=== PATIENT | female | born 1945 | race Caucasian/White ===

== ENCOUNTER 2017-12-01 08:57 | Outpatient (CLI) | payer MEDICARE, OTHER ==
[~2017-12-01 08:57] MED LIST: ATOR40TA PO; DILT120C51 PO; DOCU100C41 PO; FLUO20TA28 PO; FURO20TA4 PO; GABA-534 PO; HYDR-565 PO; LEVO75TA7 PO; MULT-1085 PO; OMEP20CA10 PO; RIVA20TA PO; SOTA80TA26 PO; TRAZ-143 PO; UMEC62.5 INH; ZET10T PO
[2017-12-01 09:51] LABS: BASOPHILS % (AUTO) 0.4 % (0-1); EOSINOPHILS # (AUTO) 0.2 X10'3 (0-0.9); HEMATOCRIT 37.1 % (35.0-45.0); HEMOGLOBIN 12.1 g/dl (12.0-16.0); LYMPHOCYTES # (AUTO) 1.3 X10'3 (1.1-4.8); LYMPHOCYTES % (AUTO) 25.3 % (21-51); MEAN CORPUSCULAR HEMOGLOBIN 28.7 PG (27.0-31.0); MEAN CORPUSCULAR HGB CONC 32.6 % (33.0-36.5); MEAN PLATELET VOLUME 8.4 FL (7.4-10.4); MONOCYTES # (AUTO) 0.4 X10'3 (0-0.9); MONOCYTES % (AUTO) 8.2 % (2-12); NEUTROPHILS # (AUTO) 3.3 X10'3 (1.8-7.7); NEUTROPHILS % (AUTO) 63.1 % (42-75); PLATELET COUNT 186 X10'3 (140-440); RED BLOOD COUNT 4.22 X10'6 (4.20-5.60); RED CELL DISTRIBUTION WIDTH 14.4 % (11.5-14.5); WHITE BLOOD COUNT 5.2 X10'3 (4.5-11.0)
[2017-12-01 09:54] LABS: CLARITY,URINE SLIGHTLY CLOUDY (Clear); COLOR,URINE YELLOW (Yellow); GLUCOSE, URINE NEGATIVE (Neg); KETONES,URINE NEGATIVE (Neg); LEUKOCYTE ESTERASE ,URINE NEGATIVE (Neg); NITRITES, URINE NEGATIVE (Neg); OCCULT BLOOD,URINE TRACE-INTACT (Neg); PROTEIN,URINE NEGATIVE (Neg); UROBILINOGEN,URINE 0.2 E.U/dL (0.2-1.0)
[2017-12-01 09:59] LABS: UA COLLECTION TYPE CLN CATCH MIDSTREAM
[2017-12-01 10:01] LABS: INR 1.2 INR; PROTHROMBIN TIME 12.8 SECONDS (9.0-12.0)
[2017-12-01 10:15] LABS: ALANINE AMINOTRANSFERASE 27 U/L (12-78); ALBUMIN 3.2 G/DL (3.4-5.0); ALKALINE PHOSPHATASE 65 IU/L (46-116); ANION GAP 10 (8-16); ASPARTATE AMINO TRANSFERASE 20 U/L (10-37); BILIRUBIN,TOTAL 0.4 MG/DL (0.1-1.0); BLOOD UREA NITROGEN 10 MG/DL (7-18); BUN/CREATININE RATIO 11.5 (6.6-38.0); CALCIUM 8.6 MG/DL (8.5-10.1); CHLORIDE 107 MMOL/L (99-107); CREATININE 0.87 MG/DL (0.40-0.90); GLUCOSE 94 MG/DL (70-104); SODIUM 146 MMOL/L (135-145); TOTAL CARBON DIOXIDE 29.1 MMOL/L (24-32); TOTAL PROTEIN 6.5 G/DL (6.4-8.2); eGFR 64 ML/MIN
[2017-12-01 10:16] LABS: BACTERIA,URINE NONE SEEN /HPF (Neg); MUCUS STRANDS NONE SEEN /LPF (Neg); SQUAMOUS EPITHELIAL CELL,UR FEW /LPF (FEW); WBC,URINE 0-4 /HPF (0-4)
== END 2017-12-01 23:59 | disposition home or self-care (01) ==
LOC: LAB 08:57
PROVIDERS: ATTEND Specialist
DX: Z01.818 Encounter for other preprocedural examination (principal); Z51.81 Encounter for therapeutic drug level monitoring; N39.0 Urinary tract infection, site not specified; I10 Essential (primary) hypertension; E11.9 Type 2 diabetes mellitus without complications; J44.9 Chronic obstructive pulmonary disease, unspecified; Z87.891 Personal history of nicotine dependence
CPT/HCPCS: 36415; 80053; 81001; 85025; 85610; 87070

== ENCOUNTER 2017-12-15 12:23 | Inpatient (IN) | payer MEDICARE, OTHER ==
[2017-12-15] VITALS (17 sets, daily range): BP systolic 95–187; BP diastolic 44–75
[~2017-12-15] VITALS: Ht 165.1 cm; Wt 99.2 kg
[~2017-12-15 12:23] MED LIST changes: +ASCO500C15 PO; +CALC-1197 PO; +DOCUMENT DATE & TIME OF BETA-BLOCKER PO ONE; -FURO20TA4 PO; +acetaminophen 325mg tablet PO ONE; +albuterol 2.5 MG/3 ML nebule NEB ONE; +ceFAZolin 2gm in dextrose, iso 100 ML IV ONE; +cefazolin/dext.iso 2gm/50ml 50 ML IV ONE; +famotidine 20mg tablet PO ONE; +gabapentin 300mg capsule PO ONE; +oxyCODONE SR 10mg (sust. release) tab PO ONE; +ringers solution, lacted 1,000 ML IV SCH
[2017-12-15] MEDS ORDERED: ROPIVAcaine 0.5% (5mg/ml) 30ml vial ONE ×2 (12:46→15:07)
[2017-12-15 12:51] LABS: PARTIAL THROMBOPLASTIN TIME 30 SECONDS (22-32); PROTHROMBIN TIME 10.4 SECONDS (9.0-12.0)
[2017-12-15] MEDS ORDERED: bacitracin inj 150,000 UNIT in sodium chloride irrig. sol 3,000 ML IR ONE (13:00)
[2017-12-15] MEDS ORDERED: ENOX40SY7 SQ (13:06)
[2017-12-15] MEDS ORDERED: MORPHINE SULFATE/PF 0.5 MG/ML 10ML AMPUL ONE (13:20)
[2017-12-15] MEDS ORDERED: midazolam 2 mg/2 ml injection ONE (13:23)
[2017-12-15] MEDS ORDERED: propofol inj 20 ML IV ONE ×5 (13:25→14:55)
[2017-12-15] MEDS ORDERED: BUPIVAcaine/dex-water/PF 7.5 mg/ml 2ml ampul ONE (13:26)
[2017-12-15] MEDS ORDERED: ondansetron/PF 4mg/2ml inj ONE (14:15)
[2017-12-15] MEDS ORDERED: dexamethasone sod phosphate 4mg/ml inj. ONE (14:15)
[2017-12-15] MEDS ORDERED: 0.9 % SODIUM CHLORIDE 10 ML VIAL ONE (15:07)
[2017-12-15] MEDS ORDERED: ceFAZolin 1000mg inj ONE (15:17)
[2017-12-15] MEDS ORDERED: ondansetron/PF 4mg/2ml inj IV PRN ×2 (15:45→16:25)
[2017-12-15] MEDS ORDERED: morphine 4 MG/ML inj SYRINge IV PRN ×2 (15:45→16:25)
[2017-12-15] MEDS ORDERED: acetaminophen 325mg tablet PO PRN (15:45)
[2017-12-15] MEDS ORDERED: diphenhydrAMINE 25mg capsule PO PRN ×2 (15:45)
[2017-12-15] MEDS ORDERED: oxyCODONE/APAP 10/325mg tablet PO PRN (15:45)
[2017-12-15] MEDS ORDERED: magnesium hydroxide 30ml (MOM) UD suspension PO PRN (15:45)
[2017-12-15] MEDS ORDERED: bisacodyl 10mg suppository rectal RC PRN (15:45)
[2017-12-15] MEDS ORDERED: ringers solution, lacted 1,000 ML IV SCH (16:23)
[2017-12-15] MEDS ORDERED: fentaNYL/PF 50MCG/1 ML 2ML syringe IV PRN (16:25)
[2017-12-15] MEDS ORDERED: proCHLORperazine 10 MG/2 ml inj IV PRN (16:25)
[2017-12-15] MEDS: ceFAZolin 1GM/D5W- ADD-VANTAGE 50 ML IV SCH (18:30)
[2017-12-15] MEDS: potassium cl 20mEq in 1/2 NS 1,000 ML IV SCH (18:31)
[2017-12-15] MEDS: sotalol 80mg tablet PO SCH (20:00)
[2017-12-15] MEDS ORDERED: vancomycin/NS 1 GM ADD-VANTAGE 250 ML IV SCH (20:00)
[2017-12-15] MEDS: atorvastatin 20mg tablet PO SCH (21:08)
[2017-12-15] MEDS: gabapentin 400mg capsule PO SCH (21:08)
[2017-12-15] MEDS: FLUoxetine 20mg capsule PO SCH (21:08)
[2017-12-15] MEDS: docusate sod 100mg capsule PO SCH (21:08)
[2017-12-15] MEDS: ascorbic acid 500mg tablet PO SCH (21:08)
[2017-12-15] MEDS: sennosides 8.6mg tablet PO SCH (21:10)
[2017-12-16] MEDS: oxyCODONE/APAP 10/325mg tablet PO PRN ×5 (00:43→19:58)
[2017-12-16] MEDS: ceFAZolin 1GM/D5W- ADD-VANTAGE 50 ML IV SCH (00:45)
[2017-12-16 02:00] VITALS: BP 116/49
[2017-12-16 04:24] LABS: INR 1.3 INR; PROTHROMBIN TIME 13.3 SECONDS (9.0-12.0)
[2017-12-16 04:30] LABS: BASOPHILS % (AUTO) 0 % (0-1); EOSINOPHILS # (AUTO) 0.2 X10'3 (0-0.9); EOSINOPHILS % (AUTO) 1.8 % (0-6); HEMATOCRIT 32.8 % (35.0-45.0); HEMOGLOBIN 10.9 g/dl (12.0-16.0); LYMPHOCYTES # (AUTO) 1.2 X10'3 (1.1-4.8); LYMPHOCYTES % (AUTO) 11.6 % (21-51); MEAN CORPUSCULAR HEMOGLOBIN 29.1 PG (27.0-31.0); MEAN CORPUSCULAR HGB CONC 33.4 % (33.0-36.5); MEAN CORPUSCULAR VOLUME 87.1 FL (78-98); MEAN PLATELET VOLUME 8.5 FL (7.4-10.4); MONOCYTES # (AUTO) 0.5 X10'3 (0-0.9); MONOCYTES % (AUTO) 4.9 % (2-12); NEUTROPHILS # (AUTO) 8.2 X10'3 (1.8-7.7); NEUTROPHILS % (AUTO) 81.7 % (42-75); PLATELET COUNT 179 X10'3 (140-440); RED BLOOD COUNT 3.77 X10'6 (4.20-5.60); RED CELL DISTRIBUTION WIDTH 13.9 % (11.5-14.5)
[2017-12-16 05:10] LABS: ANION GAP 8 (8-16); CHLORIDE 105 MMOL/L (99-107); POTASSIUM 4.3 MMOL/L (3.5-5.1); SODIUM 141 MMOL/L (135-145); TOTAL CARBON DIOXIDE 28.2 MMOL/L (24-32)
[2017-12-16 05:30] VITALS: BP 116/51
[2017-12-16] MEDS: potassium cl 20mEq in 1/2 NS 1,000 ML IV SCH ×4 (05:31→23:44)
[2017-12-16] MEDS: pantoprazole 40mg Tablet.DR PO SCH (07:30)
[2017-12-16] MEDS: multivitamins, therapeutics tablet PO SCH (08:00)
[2017-12-16] MEDS: ezetimibe 10mg tablet PO SCH (08:00)
[2017-12-16] MEDS: gabapentin 400mg capsule PO SCH ×2 (08:00→19:56)
[2017-12-16] MEDS: sotalol 80mg tablet PO SCH ×2 (08:00→19:56)
[2017-12-16] MEDS: docusate sod 100mg capsule PO SCH ×2 (08:00→19:57)
[2017-12-16] MEDS: FLUoxetine 20mg capsule PO SCH ×2 (08:00→19:57)
[2017-12-16] MEDS: levoTHYROXINE 75mcg tablet PO SCH (08:00)
[2017-12-16] MEDS: ascorbic acid 500mg tablet PO SCH ×2 (08:00→19:57)
[2017-12-16] MEDS: diltiazem CD 180mg cap (once-daily) PO SCH (08:00)
[2017-12-16 10:00] VITALS: BP 130/55
[2017-12-16] MEDS ORDERED: warfarin 7.5mg tablet PO ONE (10:00)
[2017-12-16 14:00] VITALS: BP 112/36
[2017-12-16 18:00] VITALS: BP 113/58
[2017-12-16] MEDS: Protein Shake (high protein) 240ml (8oz) cup PO SCH (18:00)
[2017-12-16] MEDS: atorvastatin 20mg tablet PO SCH (20:01)
[2017-12-16] MEDS: sennosides 8.6mg tablet PO SCH (20:01)
[2017-12-16 22:00] VITALS: BP 142/50
[2017-12-17] MEDS: oxyCODONE/APAP 10/325mg tablet PO PRN ×5 (01:25→20:55)
[2017-12-17 05:30] VITALS: BP 166/51
[2017-12-17 06:09] LABS: BASOPHILS % (AUTO) 0.2 % (0-1); EOSINOPHILS # (AUTO) 0.1 X10'3 (0-0.9); EOSINOPHILS % (AUTO) 1.6 % (0-6); HEMATOCRIT 32.1 % (35.0-45.0); HEMOGLOBIN 10.6 g/dl (12.0-16.0); LYMPHOCYTES # (AUTO) 1.7 X10'3 (1.1-4.8); LYMPHOCYTES % (AUTO) 19.3 % (21-51); MEAN CORPUSCULAR HEMOGLOBIN 28.9 PG (27.0-31.0); MEAN CORPUSCULAR HGB CONC 33.2 % (33.0-36.5); MEAN CORPUSCULAR VOLUME 87.2 FL (78-98); MEAN PLATELET VOLUME 8.5 FL (7.4-10.4); MONOCYTES # (AUTO) 0.9 X10'3 (0-0.9); MONOCYTES % (AUTO) 10.1 % (2-12); NEUTROPHILS # (AUTO) 5.9 X10'3 (1.8-7.7); NEUTROPHILS % (AUTO) 68.8 % (42-75); PLATELET COUNT 172 X10'3 (140-440); RED BLOOD COUNT 3.68 X10'6 (4.20-5.60); RED CELL DISTRIBUTION WIDTH 14.3 % (11.5-14.5); WHITE BLOOD COUNT 8.6 X10'3 (4.5-11.0)
[2017-12-17 06:10] LABS: INR 3.2 INR; PROTHROMBIN TIME 31.8 SECONDS (9.0-12.0)
[2017-12-17] MEDS: potassium cl 20mEq in 1/2 NS 1,000 ML IV SCH (07:44)
[2017-12-17 08:18] VITALS: BP 157/52
[2017-12-17] MEDS: pantoprazole 40mg Tablet.DR PO SCH (08:19)
[2017-12-17] MEDS: levoTHYROXINE 75mcg tablet PO SCH (08:20)
[2017-12-17] MEDS: diltiazem CD 180mg cap (once-daily) PO SCH (08:20)
[2017-12-17] MEDS: sotalol 80mg tablet PO SCH ×2 (08:20→20:45)
[2017-12-17] MEDS: gabapentin 400mg capsule PO SCH ×2 (08:20→20:46)
[2017-12-17] MEDS: FLUoxetine 20mg capsule PO SCH ×2 (08:20→20:46)
[2017-12-17] MEDS: docusate sod 100mg capsule PO SCH ×2 (08:20→20:00)
[2017-12-17] MEDS: ezetimibe 10mg tablet PO SCH (08:21)
[2017-12-17] MEDS: ascorbic acid 500mg tablet PO SCH ×2 (08:21→20:46)
[2017-12-17] MEDS: multivitamins, therapeutics tablet PO SCH (08:21)
[2017-12-17] MEDS: Protein Shake (high protein) 240ml (8oz) cup PO SCH ×3 (08:26→18:00)
[2017-12-17 11:12] VITALS: BP 148/75
[2017-12-17] MEDS ORDERED: acetaminophen 325mg tablet PO PRN (15:45)
[2017-12-17 18:00] VITALS: BP 162/55
[2017-12-17] MEDS: sennosides 8.6mg tablet PO SCH (20:46)
[2017-12-17] MEDS: atorvastatin 20mg tablet PO SCH (20:46)
[2017-12-17 22:00] VITALS: BP 168/67
[2017-12-18] MEDS: oxyCODONE/APAP 10/325mg tablet PO PRN ×2 (01:43→08:37)
[2017-12-18 03:45] VITALS: BP 137/51
[2017-12-18 05:48] LABS: BASOPHILS % (AUTO) 0.5 % (0-1); EOSINOPHILS # (AUTO) 0.2 X10'3 (0-0.9); EOSINOPHILS % (AUTO) 2.1 % (0-6); HEMATOCRIT 30.8 % (35.0-45.0); HEMOGLOBIN 10.4 g/dl (12.0-16.0); LYMPHOCYTES # (AUTO) 1.9 X10'3 (1.1-4.8); LYMPHOCYTES % (AUTO) 24.6 % (21-51); MEAN CORPUSCULAR HEMOGLOBIN 29.4 PG (27.0-31.0); MEAN CORPUSCULAR HGB CONC 33.6 % (33.0-36.5); MEAN CORPUSCULAR VOLUME 87.5 FL (78-98); MEAN PLATELET VOLUME 8.7 FL (7.4-10.4); MONOCYTES # (AUTO) 0.7 X10'3 (0-0.9); MONOCYTES % (AUTO) 9.5 % (2-12); NEUTROPHILS % (AUTO) 63.3 % (42-75); PLATELET COUNT 168 X10'3 (140-440); RED BLOOD COUNT 3.52 X10'6 (4.20-5.60); RED CELL DISTRIBUTION WIDTH 14.3 % (11.5-14.5); WHITE BLOOD COUNT 7.8 X10'3 (4.5-11.0)
[2017-12-18 05:53] LABS: PROTHROMBIN TIME 39.9 SECONDS (9.0-12.0)
[2017-12-18 06:00] VITALS: BP 156/60
[2017-12-18 06:35] LABS: INR 4.1 INR
[2017-12-18] MEDS: pantoprazole 40mg Tablet.DR PO SCH (08:35)
[2017-12-18] MEDS: levoTHYROXINE 75mcg tablet PO SCH (08:35)
[2017-12-18] MEDS: sotalol 80mg tablet PO SCH (08:35)
[2017-12-18] MEDS: multivitamins, therapeutics tablet PO SCH (08:35)
[2017-12-18] MEDS: ascorbic acid 500mg tablet PO SCH (08:35)
[2017-12-18] MEDS: docusate sod 100mg capsule PO SCH (08:35)
[2017-12-18] MEDS: gabapentin 400mg capsule PO SCH (08:36)
[2017-12-18] MEDS: ezetimibe 10mg tablet PO SCH (08:36)
[2017-12-18] MEDS: diltiazem CD 180mg cap (once-daily) PO SCH (08:36)
[2017-12-18] MEDS: FLUoxetine 20mg capsule PO SCH (08:36)
[2017-12-18] MEDS: Protein Shake (high protein) 240ml (8oz) cup PO SCH (08:37)
[2017-12-18 09:30] LABS: INR 3.8 INR; PROTHROMBIN TIME 37.5 SECONDS (9.0-12.0)
[2017-12-18 10:00] VITALS: BP 152/61
== END 2017-12-18 11:49 | disposition home health service (06) | DRG 470 ==
LOC: PAS IN 12:23 → EDSTATUS 13:00 → ORTHO 4S 16:59
PROVIDERS: ADMIT Specialist; ATTEND Specialist
PROC: 0SRD0J9 Replacement of Left Knee Joint with Synthetic Substitute, Cemented, Open Approach (ICD-10-PCS; principal; 2017-12-15 13:26)
DX: M17.12 Unilateral primary osteoarthritis, left knee (principal); G62.9 Polyneuropathy, unspecified; D68.9 Coagulation defect, unspecified; D62 Acute posthemorrhagic anemia; M41.9 Scoliosis, unspecified; I48.91 Unspecified atrial fibrillation; E03.9 Hypothyroidism, unspecified; E66.9 Obesity, unspecified; J44.9 Chronic obstructive pulmonary disease, unspecified; E78.5 Hyperlipidemia, unspecified; I10 Essential (primary) hypertension; I25.10 Atherosclerotic heart disease of native coronary artery without angina pectoris; F32.9 Major depressive disorder, single episode, unspecified; F41.9 Anxiety disorder, unspecified; Z96.651 Presence of right artificial knee joint; Z95.5 Presence of coronary angioplasty implant and graft; Z79.891 Long term (current) use of opiate analgesic; Z87.891 Personal history of nicotine dependence; Z68.36 Body mass index [BMI] 36.0-36.9, adult
CPT/HCPCS: 36415; 73560; 80051; 85025; 85610; 85730; 97110; 97116; 97162; 97530; A6449; A6455; A7000; C1713; C1758; C1776; J0690; J1100; J2250; J2270; J2274; J2405; J2704; J2795; J3370; J3490; J7030; J7120

== ENCOUNTER 2018-02-23 11:41 | Emergency (ER) | payer MEDICARE, OTHER ==
[~2018-02-23] VITALS: Ht 165.1 cm; Wt 90.0 kg
[~2018-02-23 11:41] MED LIST changes: -DOCUMENT DATE & TIME OF BETA-BLOCKER PO ONE; +ENOX40SY7 SQ; -acetaminophen 325mg tablet PO ONE; -albuterol 2.5 MG/3 ML nebule NEB ONE; -ceFAZolin 2gm in dextrose, iso 100 ML IV ONE; -cefazolin/dext.iso 2gm/50ml 50 ML IV ONE; -famotidine 20mg tablet PO ONE; -gabapentin 300mg capsule PO ONE; -oxyCODONE SR 10mg (sust. release) tab PO ONE; -ringers solution, lacted 1,000 ML IV SCH
[2018-02-23 12:17] LABS: BASOPHILS % (AUTO) 0.5 % (0-1); EOSINOPHILS # (AUTO) 0.2 X10'3 (0-0.9); EOSINOPHILS % (AUTO) 3.9 % (0-6); HEMATOCRIT 35.2 % (35.0-45.0); HEMOGLOBIN 11.6 g/dl (12.0-16.0); LYMPHOCYTES # (AUTO) 1.8 X10'3 (1.1-4.8); LYMPHOCYTES % (AUTO) 32.2 % (21-51); MEAN CORPUSCULAR HEMOGLOBIN 28.7 PG (27.0-31.0); MEAN CORPUSCULAR VOLUME 86.9 FL (78-98); MEAN PLATELET VOLUME 8.3 FL (7.4-10.4); MONOCYTES # (AUTO) 0.4 X10'3 (0-0.9); MONOCYTES % (AUTO) 7.7 % (2-12); NEUTROPHILS # (AUTO) 3.2 X10'3 (1.8-7.7); NEUTROPHILS % (AUTO) 55.7 % (42-75); PLATELET COUNT 185 X10'3 (140-440); RED BLOOD COUNT 4.05 X10'6 (4.20-5.60); RED CELL DISTRIBUTION WIDTH 14.7 % (11.5-14.5); WHITE BLOOD COUNT 5.7 X10'3 (4.5-11.0)
[2018-02-23 12:32] LABS: ALANINE AMINOTRANSFERASE 22 U/L (12-78); ALBUMIN 3.3 G/DL (3.4-5.0); ALKALINE PHOSPHATASE 87 IU/L (46-116); ANION GAP 9 (8-16); ASPARTATE AMINO TRANSFERASE 21 U/L (10-37); BILIRUBIN,TOTAL 0.2 MG/DL (0.1-1.0); BLOOD UREA NITROGEN 13 MG/DL (7-18); CALCIUM 8.5 MG/DL (8.5-10.1); CHLORIDE 104 MMOL/L (99-107); CREATININE 0.93 MG/DL (0.40-0.90); GLUCOSE 167 MG/DL (70-104); LIPASE 75 U/L (73-393); POTASSIUM 3.8 MMOL/L (3.5-5.1); SODIUM 143 MMOL/L (135-145); TOTAL CARBON DIOXIDE 30.3 MMOL/L (24-32); TOTAL PROTEIN 6.7 G/DL (6.4-8.2); eGFR 59 ML/MIN
[2018-02-23 12:45] LABS: CLARITY,URINE Clear (Clear); COLOR,URINE Yellow (Yellow); GLUCOSE, URINE Negative (Neg); KETONES,URINE Negative (Neg); LEUKOCYTE ESTERASE ,URINE Negative (Neg); NITRITES, URINE Negative (Neg); OCCULT BLOOD,URINE Negative (Neg); PH,URINE 6.5 (4.8-8.0); PROTEIN,URINE Negative (Neg); UROBILINOGEN,URINE 0.2 E.U/dL (0.2-1.0)
[2018-02-23 12:47] LABS: UA COLLECTION TYPE CLN CATCH MIDSTREAM
[2018-02-23] MEDS ORDERED: normal saline 1000ML IV soln IVB ONE (12:50)
[2018-02-23 13:17] LABS: INR 1.4 INR; PROTHROMBIN TIME 14.1 SECONDS (9.0-12.0)
[2018-02-23 15:32] VITALS: BP 166/76
== END 2018-02-23 15:34 | disposition home or self-care (01) ==
LOC: ER 11:41
DX: R10.32 Left lower quadrant pain (principal); I10 Essential (primary) hypertension; J44.9 Chronic obstructive pulmonary disease, unspecified; Z86.14 Personal history of Methicillin resistant Staphylococcus aureus infection; I48.91 Unspecified atrial fibrillation; Z95.0 Presence of cardiac pacemaker; Z95.1 Presence of aortocoronary bypass graft; Z90.49 Acquired absence of other specified parts of digestive tract; Z88.5 Allergy status to narcotic agent; Z79.899 Other long term (current) drug therapy
CPT/HCPCS: 36415; 74022; 80053; 81003; 83690; 85025; 85610; 93005; 99285

== ENCOUNTER 2019-05-25 06:53 | Inpatient (IN) | payer MEDICARE, OTHER ==
[2019-05-21 11:51] LABS: BASOPHILS # (AUTO) 0.1 X10'3 (0-0.2); BASOPHILS % (AUTO) 0.8 % (0-1); EOSINOPHILS # (AUTO) 0.2 X10'3 (0-0.9); EOSINOPHILS % (AUTO) 3.1 % (0-6); LYMPHOCYTES % (AUTO) 26.4 % (21-51); MEAN CORPUSCULAR HGB CONC 32.4 g/dL (33.0-36.5); MEAN CORPUSCULAR VOLUME 86.4 FL (78-98); MONOCYTES # (AUTO) 0.6 X10'3 (0-0.9); MONOCYTES % (AUTO) 8.6 % (2-12); NEUTROPHILS # (AUTO) 4.5 X10'3 (1.8-7.7); NEUTROPHILS % (AUTO) 61.1 % (42-75); PRE OP PLATELET COUNT 241 X10'3 (140-440); RED BLOOD COUNT 4.28 X10'6 (4.20-5.60); RED CELL DISTRIBUTION WIDTH 14.2 % (11.5-14.5)
[2019-05-21 12:08] LABS: PRE OP PROTIME 15.1 SECONDS (9.0-12.0)
[2019-05-21 12:09] LABS: PRE OP INR 1.5 INR
[2019-05-21 12:16] LABS: ALBUMIN 3.4 G/DL (3.4-5.0); ALKALINE PHOSPHATASE 73 IU/L (46-116); BLOOD UREA NITROGEN 14 MG/DL (7-18); BUN/CREATININE RATIO 15.6 (6.6-38.0); CALCIUM 8.6 MG/DL (8.5-10.1); CHLORIDE 108 MMOL/L (99-107); PRE OP ALT 21 U/L (30-65); PRE OP ANION GAP 7 (8-16); PRE OP AST 20 U/L (10-37); PRE OP BILIRUB, TOTAL 0.3 MG/DL (0.0-1.0); PRE OP GLUCOSE 76 MG/DL (70-104); PRE OP POTASSIUM 4.2 MMOL/L (3.4-5.1); PRE OP SODIUM 143 MMOL/L (135-145); TOTAL CARBON DIOXIDE 27.9 MMOL/L (24-32); TOTAL PROTEIN 6.9 G/DL (6.4-8.2); eGFR 61 ML/MIN
[2019-05-25] VITALS (17 sets, daily range): BP systolic 117–171; BP diastolic 47–78
[~2019-05-25] VITALS: Ht 165.1 cm; Wt 88.5 kg
[~2019-05-25 06:53] MED LIST changes: +DOCUMENT DATE & TIME OF BETA-BLOCKER PO ONE; -ENOX40SY7 SQ; +HYDR-4353 PO; -HYDR-565 PO; -OMEP20CA10 PO; +OMEP20CA11 PO; -TRAZ-143 PO; +TRAZ-251 PO; +cefazolin/dext.iso 2gm/100 ML IV ONE; +famotidine 20mg tablet PO ONE; +ringers solution, lacted 1,000 ML IV SCH
[2019-05-25] MEDS ORDERED: ketorolac trometh. 30mg/ml inj. ONE ×2 (07:09→11:11)
[2019-05-25] MEDS ORDERED: LIDOcaine 1% 30ml preserv. free vial ONE (07:09)
[2019-05-25] MEDS ORDERED: BUPIVAcaine/PF 2.5 mg/ml (0.25%) 30ml vial ONE (07:09)
[2019-05-25] MEDS ORDERED: ROPIVAcaine 0.5% (5mg/ml) 30ml vial ONE (07:09)
[2019-05-25] MEDS ORDERED: ipratropium/albuterol 3ml nebule NEB ONE (07:30)
[2019-05-25] MEDS ORDERED: ringers solution, lacted 1,000 ML IV SCH (07:53)
[2019-05-25] MEDS ORDERED: ondansetron/PF 4mg/2ml inj IV PRN ×2 (07:55→11:30)
[2019-05-25] MEDS ORDERED: proCHLORperazine 10 MG/2 ml inj IV PRN (07:55)
[2019-05-25] MEDS ORDERED: meperidine/PF 25mg/ml syringe IV PRN ×3 (07:55)
[2019-05-25] MEDS ORDERED: fentaNYL/PF 50MCG/1 ML 2ML syringe ONE ×2 (08:19→10:21)
[2019-05-25 08:20] LABS: PRE OP PROTIME 10.1 SECONDS (9.0-12.0)
[2019-05-25] MEDS ORDERED: midazolam 2 mg/2 ml injection ONE (08:20)
[2019-05-25] MEDS ORDERED: LIDOcaine 2% (20mg/ml) 5ml vial ONE (08:22)
[2019-05-25] MEDS ORDERED: rocuronium 10mg/ml inj IV ONE (08:22)
[2019-05-25] MEDS ORDERED: propofol inj 20 ML IV ONE (08:22)
[2019-05-25] MEDS ORDERED: ondansetron/PF 4mg/2ml inj ONE (08:40)
[2019-05-25] MEDS ORDERED: dexamethasone sod phosphate 4mg/ml inj. ONE (08:40)
[2019-05-25] MEDS ORDERED: naloxone 0.4 mg/ml inj IV PRN (11:30)
[2019-05-25] MEDS ORDERED: CADD PCA waste documentation MC PRN (11:30)
--- NOTE | 2019-05-25 11:30 | NUR ---
Received from OR via BED , accompanied by Anesthesiologist DR VELAZQUEZ and report given by Anesthesiolgist. PATIENT WAKING UP, C/O PAIN SEE EMAR, V/S WNL, NEUROVASCULAR CHECKS INTACT, 20G PIV RUE, SCD ON, 3 BANDAIDS TO LAP SIGHTS OF ABDOMEN AND STERISTRIPS CDI WITH ABD BINDER
[2019-05-25] MEDS: HYDROmorphone/NS 1 mg/ml CADD 50 ML IV SCH ×7 (11:59→23:00)
--- NOTE | 2019-05-25 12:15 | NUR ---
Patient in room [facility]I 356. I have received report from Johan hummel and had the opportunity to ask questions and assume patient care.
--- NOTE | 2019-05-25 12:30 | NUR ---
PATIENT ORIENTED BUT SLEEPY HAS TEACHER KINDERGARTEN AND STATES IT IS HELPING HER WITH PAIN CONTROL, V/S WNL, CSM INTACT, 3 BANDAIDS TO LAP SITES OF ABDOMEN WITH BINDER CDI. SCD ON, 20G PIV, TELE PLACED ON PATIENT AND PATIENT TAKEN TO 357B WITH ALL BELONGINGS AND HOOKED UP TO MONITORS IN ROOM AND REPORT GIVEN TO RN WHO HAS TAKEN OVER PATIENT CARE.
[2019-05-25] MEDS: ipratropium 0.5 MG/2.5ML nebule IH SCH ×2 (15:31→20:27)
[2019-05-25] MEDS: potassium CL 20mEq in D5-1/2NS 1,000 ML IV SCH ×2 (15:46→20:15)
[2019-05-25] MEDS: ceFAZolin 1GM/D5W- ADD-VANTAGE 50 ML IV SCH ×2 (15:49→23:22)
--- NOTE | 2019-05-25 18:30 | NUR ---
Problems reprioritized. Patient report given, questions answered & plan of care reviewed with Malini NIEVES.
[2019-05-25] MEDS ORDERED: non-formulary drug (Omeprazole 1 CAP) PO SCH (20:00)
[2019-05-25] MEDS ORDERED: FLUOXETINE HCL PO SCH (20:00)
[2019-05-25] MEDS: FLUoxetine 20mg capsule PO SCH (20:15)
[2019-05-25] MEDS: pantoprazole 40mg Tablet.DR PO SCH (20:15)
[2019-05-25] MEDS: gabapentin 400mg capsule PO SCH (20:15)
[2019-05-25] MEDS: sotalol 80mg tablet PO SCH (20:15)
[2019-05-25] MEDS: atorvastatin 20mg tablet PO SCH (20:16)
[2019-05-25] MEDS: traZODone 50mg tablet PO SCH (20:16)
[2019-05-25] MEDS ORDERED: non-formulary drug (Atorvastatin Calcium* (Lipitor*) 80 MG) PO SCH (21:00)
--- NOTE | 2019-05-25 23:05 | NUR ---
Patient in room JOI 356. I have received report from LIZBETH Dumont and had the opportunity to ask questions and assume patient care. Addendum: 05/25/19 at 2306 by Malini Shaikh RN Amended: Links added.
[2019-05-26] VITALS: BP 134/50
[2019-05-26] MEDS: HYDROmorphone/NS 1 mg/ml CADD 50 ML IV SCH ×8 (01:00→15:00)
[2019-05-26] MEDS: ipratropium 0.5 MG/2.5ML nebule IH SCH ×4 (02:57→20:06)
[2019-05-26] MEDS: potassium CL 20mEq in D5-1/2NS 1,000 ML IV SCH ×3 (03:27→16:03)
[2019-05-26 05:58] LABS: BASOPHILS % (AUTO) 0.3 % (0-1); EOSINOPHILS % (AUTO) 0.1 % (0-6); HEMATOCRIT 36.9 % (35.0-45.0); LYMPHOCYTES # (AUTO) 1.1 X10'3 (1.1-4.8); LYMPHOCYTES % (AUTO) 12.8 % (21-51); MEAN CORPUSCULAR HEMOGLOBIN 28.3 PG (27.0-31.0); MEAN CORPUSCULAR HGB CONC 32.5 g/dL (33.0-36.5); MEAN PLATELET VOLUME 8.6 FL (7.4-10.4); MONOCYTES # (AUTO) 0.6 X10'3 (0-0.9); MONOCYTES % (AUTO) 6.6 % (2-12); NEUTROPHILS # (AUTO) 7.2 X10'3 (1.8-7.7); NEUTROPHILS % (AUTO) 80.2 % (42-75); PLATELET COUNT 209 X10'3 (140-440); RED BLOOD COUNT 4.24 X10'6 (4.20-5.60); RED CELL DISTRIBUTION WIDTH 13.9 % (11.5-14.5)
[2019-05-26 06:05] LABS: ALBUMIN 2.8 G/DL (3.4-5.0); ANION GAP 7 (8-16); BLOOD UREA NITROGEN 9 MG/DL (7-18); BUN/CREATININE RATIO 10.3 (6.6-38.0); CALCIUM 8.6 MG/DL (8.5-10.1); CHLORIDE 108 MMOL/L (99-107); CREATININE 0.87 MG/DL (0.40-0.90); GLUCOSE 151 MG/DL (70-104); POTASSIUM 4.8 MMOL/L (3.5-5.1); SODIUM 144 MMOL/L (135-145); TOTAL CARBON DIOXIDE 29.5 MMOL/L (24-32); eGFR 64 ML/MIN
--- NOTE | 2019-05-26 06:23 | NUR ---
Problems reprioritized. Patient report given, questions answered & plan of care reviewed with LIZBETH Lindquist. Addendum: 05/26/19 at 0623 by Malini Shaikh RN Amended: Links added.
--- NOTE | 2019-05-26 06:28 | NUR ---
Patient in room JOI 356. I have received report from Malini NIEVES and had the opportunity to ask questions and assume patient care.
[2019-05-26 07:00] VITALS: BP 147/50
[2019-05-26] MEDS ORDERED: DILTIAZEM HCL 180 MG PO SCH (08:00)
[2019-05-26] MEDS ORDERED: levoTHYROXINE 75mcg tablet PO SCH (08:00)
[2019-05-26] MEDS ORDERED: enoxaparin 40mg/0.4ml syringe SQ SCH (08:00)
[2019-05-26] MEDS ORDERED: non-formulary drug (Umeclidinium Bromide (Incruse Ellipta) 1 PUFF) INH SCH (08:00)
[2019-05-26] MEDS: diltiazem CD 180mg cap (once-daily) PO SCH (08:25)
[2019-05-26] MEDS: FLUoxetine 20mg capsule PO SCH ×2 (08:25→20:06)
[2019-05-26] MEDS: pantoprazole 40mg Tablet.DR PO SCH ×2 (08:25→20:06)
[2019-05-26] MEDS: gabapentin 400mg capsule PO SCH ×3 (08:25→20:06)
[2019-05-26] MEDS: ezetimibe 10mg tablet PO SCH (08:26)
[2019-05-26] MEDS: sotalol 80mg tablet PO SCH ×2 (08:26→20:06)
[2019-05-26] MEDS: rivaroxaban 20mg tablet PO SCH (08:26)
[2019-05-26 11:00] VITALS: BP 142/62
[2019-05-26] MEDS: HYDROcodone/acetaminophen 10/325mg tab PO PRN (17:48)
--- NOTE | 2019-05-26 18:31 | NUR ---
Problems reprioritized. Patient report given, questions answered & plan of care reviewed with Dereck NIEVES.
[2019-05-26 19:00] VITALS: BP 152/78
[2019-05-26] MEDS: traZODone 50mg tablet PO SCH (20:05)
[2019-05-26] MEDS: atorvastatin 20mg tablet PO SCH (20:06)
[2019-05-26] MEDS: HYDROcodone/acetaminophen 5mg/325mg tablet PO PRN (22:10)
[2019-05-27] VITALS: BP 125/67
[2019-05-27] MEDS: ipratropium 0.5 MG/2.5ML nebule IH SCH ×4 (03:01→20:07)
[2019-05-27] MEDS: HYDROcodone/acetaminophen 10/325mg tab PO PRN ×4 (03:09→19:20)
[2019-05-27 06:17] LABS: BASOPHILS % (AUTO) 0.5 % (0-1); EOSINOPHILS # (AUTO) 0.1 X10'3 (0-0.9); EOSINOPHILS % (AUTO) 0.9 % (0-6); HEMATOCRIT 37.2 % (35.0-45.0); HEMOGLOBIN 12.1 g/dl (12.0-16.0); LYMPHOCYTES # (AUTO) 1.7 X10'3 (1.1-4.8); LYMPHOCYTES % (AUTO) 22.8 % (21-51); MEAN CORPUSCULAR HEMOGLOBIN 28.1 PG (27.0-31.0); MEAN CORPUSCULAR HGB CONC 32.5 g/dL (33.0-36.5); MEAN CORPUSCULAR VOLUME 86.5 FL (78-98); MEAN PLATELET VOLUME 8.5 FL (7.4-10.4); MONOCYTES # (AUTO) 0.6 X10'3 (0-0.9); MONOCYTES % (AUTO) 7.8 % (2-12); NEUTROPHILS # (AUTO) 5.2 X10'3 (1.8-7.7); PLATELET COUNT 205 X10'3 (140-440); RED CELL DISTRIBUTION WIDTH 14.2 % (11.5-14.5); WHITE BLOOD COUNT 7.6 X10'3 (4.5-11.0)
[2019-05-27 06:35] LABS: ALBUMIN 2.8 G/DL (3.4-5.0); ANION GAP 6 (8-16); BLOOD UREA NITROGEN 8 MG/DL (7-18); BUN/CREATININE RATIO 10.4 (6.6-38.0); CALCIUM 9.3 MG/DL (8.5-10.1); CHLORIDE 112 MMOL/L (99-107); CREATININE 0.77 MG/DL (0.40-0.90); GLUCOSE 90 MG/DL (70-104); POTASSIUM 4.1 MMOL/L (3.5-5.1); SODIUM 147 MMOL/L (135-145); TOTAL CARBON DIOXIDE 29.2 MMOL/L (24-32); eGFR 73 ML/MIN
--- NOTE | 2019-05-27 06:41 | NUR ---
Problems reprioritized. Patient report given, questions answered & plan of care reviewed with ramirez and suzanne.
--- NOTE | 2019-05-27 06:51 | NUR ---
Patient in room [facility]I 356. I have received report from Dereck NIEVES and had the opportunity to ask questions and assume patient care.
[2019-05-27 07:00] VITALS: BP 156/58
[2019-05-27] MEDS: diltiazem CD 180mg cap (once-daily) PO SCH (08:31)
[2019-05-27] MEDS: pantoprazole 40mg Tablet.DR PO SCH ×2 (08:31→19:21)
[2019-05-27] MEDS: FLUoxetine 20mg capsule PO SCH ×2 (08:31→19:20)
[2019-05-27] MEDS: ezetimibe 10mg tablet PO SCH (08:31)
[2019-05-27] MEDS: sotalol 80mg tablet PO SCH ×2 (08:32→19:21)
[2019-05-27] MEDS: rivaroxaban 20mg tablet PO SCH (08:32)
[2019-05-27] MEDS: gabapentin 400mg capsule PO SCH ×3 (08:33→21:59)
[2019-05-27] MEDS: levoTHYROXINE 75mcg tablet PO SCH (08:33)
[2019-05-27 11:00] VITALS: BP 144/67
[2019-05-27 18:00] VITALS: BP 153/73
--- NOTE | 2019-05-27 18:33 | NUR ---
patient was seen by Dr duff . Commenced on regular diet. patient able to pass gas . Tolerating reg diet. Up ambulating x1 . Fletcher given Q 4hrly. report given to prudence. Abdominal binder to be worn when ambulating.
--- NOTE | 2019-05-27 18:38 | NUR ---
Patient in room [facility]I 356. I have received report from Eduarda NIEVES and had the opportunity to ask questions and assume patient care.
[2019-05-27] MEDS: traZODone 50mg tablet PO SCH (21:59)
[2019-05-27] MEDS: atorvastatin 20mg tablet PO SCH (22:01)
[2019-05-28 00:38] VITALS: BP 129/50
[2019-05-28] MEDS: ipratropium 0.5 MG/2.5ML nebule IH SCH ×2 (02:27→07:26)
[2019-05-28] MEDS: HYDROcodone/acetaminophen 5mg/325mg tablet PO PRN (03:44)
[2019-05-28 06:09] LABS: BASOPHILS # (AUTO) 0.1 X10'3 (0-0.2); BASOPHILS % (AUTO) 0.9 % (0-1); EOSINOPHILS # (AUTO) 0.2 X10'3 (0-0.9); EOSINOPHILS % (AUTO) 3.6 % (0-6); HEMATOCRIT 38.3 % (35.0-45.0); HEMOGLOBIN 12.4 g/dl (12.0-16.0); LYMPHOCYTES # (AUTO) 1.8 X10'3 (1.1-4.8); LYMPHOCYTES % (AUTO) 30.6 % (21-51); MEAN CORPUSCULAR HEMOGLOBIN 28.2 PG (27.0-31.0); MEAN CORPUSCULAR HGB CONC 32.4 g/dL (33.0-36.5); MEAN PLATELET VOLUME 8.3 FL (7.4-10.4); MONOCYTES # (AUTO) 0.5 X10'3 (0-0.9); MONOCYTES % (AUTO) 8.6 % (2-12); NEUTROPHILS # (AUTO) 3.3 X10'3 (1.8-7.7); NEUTROPHILS % (AUTO) 56.3 % (42-75); PLATELET COUNT 180 X10'3 (140-440); RED CELL DISTRIBUTION WIDTH 14.1 % (11.5-14.5); WHITE BLOOD COUNT 5.8 X10'3 (4.5-11.0)
--- NOTE | 2019-05-28 06:18 | NUR ---
Problems reprioritized. Patient report given, questions answered & plan of care reviewed with Shyla NIEVES.
[2019-05-28 06:40] LABS: ALBUMIN 2.8 G/DL (3.4-5.0); ANION GAP 6 (8-16); BLOOD UREA NITROGEN 13 MG/DL (7-18); BUN/CREATININE RATIO 12.4 (6.6-38.0); CALCIUM 8.6 MG/DL (8.5-10.1); CHLORIDE 109 MMOL/L (99-107); CREATININE 1.05 MG/DL (0.40-0.90); GLUCOSE 76 MG/DL (70-104); POTASSIUM 4.1 MMOL/L (3.5-5.1); SODIUM 145 MMOL/L (135-145); TOTAL CARBON DIOXIDE 30.4 MMOL/L (24-32); eGFR 51 ML/MIN
[2019-05-28 08:00] VITALS: BP 174/72
[2019-05-28] MEDS: gabapentin 400mg capsule PO SCH ×2 (09:01→13:00)
[2019-05-28] MEDS: diltiazem CD 180mg cap (once-daily) PO SCH (09:01)
[2019-05-28] MEDS: sotalol 80mg tablet PO SCH (09:01)
[2019-05-28] MEDS: rivaroxaban 20mg tablet PO SCH (09:01)
[2019-05-28] MEDS: pantoprazole 40mg Tablet.DR PO SCH (09:01)
[2019-05-28] MEDS: ezetimibe 10mg tablet PO SCH (09:02)
[2019-05-28] MEDS: FLUoxetine 20mg capsule PO SCH (09:02)
[2019-05-28] MEDS: levoTHYROXINE 75mcg tablet PO SCH (09:02)
[2019-05-28] MEDS: HYDROcodone/acetaminophen 10/325mg tab PO PRN (10:43)
[2019-05-28 11:00] VITALS: BP 168/66
--- NOTE | 2019-05-28 12:23 | NUR ---
IV DC. CANULA INTACT
--- NOTE | 2019-05-28 14:30 | NUR ---
pt wheeled down safely to Saranas's car. Pt has all belongings and understands at discharge instructions.
== END 2019-05-28 14:53 | disposition home or self-care (01) | DRG 337 ==
LOC: PAS 06:53 → SUR 3N 11:30 → OBSVTOIN 11:30 → UNDOADMOB 12:59 → SUR 3N 12:59
PROVIDERS: ADMIT Surgery; ATTEND Surgery
PROC: 0DN84ZZ Release Small Intestine, Percutaneous Endoscopic Approach (ICD-10-PCS; 2019-05-25)
PROC: 3E0T3BZ Introduction of Anesthetic Agent into Peripheral Nerves and Plexi, Percutaneous Approach (ICD-10-PCS; 2019-05-25)
PROC: 8E0W4CZ Robotic Assisted Procedure of Trunk Region, Percutaneous Endoscopic Approach (ICD-10-PCS; 2019-05-25)
PROC: 0DNU4ZZ Release Omentum, Percutaneous Endoscopic Approach (ICD-10-PCS; 2019-05-25)
PROC: 0WUF4JZ Supplement Abdominal Wall with Synthetic Substitute, Percutaneous Endoscopic Approach (ICD-10-PCS; principal; 2019-05-25 08:13)
DX: K43.2 Incisional hernia without obstruction or gangrene (principal); J44.9 Chronic obstructive pulmonary disease, unspecified; I25.10 Atherosclerotic heart disease of native coronary artery without angina pectoris; K21.9 Gastro-esophageal reflux disease without esophagitis; F32.9 Major depressive disorder, single episode, unspecified; F41.9 Anxiety disorder, unspecified; E78.5 Hyperlipidemia, unspecified; K66.0 Peritoneal adhesions (postprocedural) (postinfection); I10 Essential (primary) hypertension; M19.90 Unspecified osteoarthritis, unspecified site; Z96.651 Presence of right artificial knee joint; E03.9 Hypothyroidism, unspecified; Z79.899 Other long term (current) drug therapy; Z79.890 Hormone replacement therapy; Z86.14 Personal history of Methicillin resistant Staphylococcus aureus infection; Z87.891 Personal history of nicotine dependence; Z90.710 Acquired absence of both cervix and uterus; Z95.0 Presence of cardiac pacemaker; Z95.5 Presence of coronary angioplasty implant and graft; Z90.49 Acquired absence of other specified parts of digestive tract
CPT/HCPCS: 36415; 80048; 80053; 82948; 85025; 85610; 85730; 93005; 94640; 94760; A4215; A4618; C1781; G0378; J0690; J1100; J1170; J1885; J2001; J2175; J2250; J2405; J2704; J2795; J3010; J3480; J3490; J7120

== ENCOUNTER 2019-08-15 07:59 | Emergency (ER) | payer MEDICARE, OTHER ==
[~2019-08-15] VITALS: Ht 165.1 cm; Wt 86.4 kg
[~2019-08-15 07:59] MED LIST changes: -DOCUMENT DATE & TIME OF BETA-BLOCKER PO ONE; -cefazolin/dext.iso 2gm/100 ML IV ONE; -famotidine 20mg tablet PO ONE; -ringers solution, lacted 1,000 ML IV SCH
[2019-08-15] MEDS ORDERED: ondansetron/PF 4mg/2ml inj IV ONE (08:55)
[2019-08-15] MEDS ORDERED: normal saline 1000ml 1,000 ML IV ONE (08:55)
[2019-08-15 09:50] LABS: BASOPHILS % (AUTO) 0.4 % (0-1); EOSINOPHILS % (AUTO) 0 % (0-6); HEMATOCRIT 38.3 % (35.0-45.0); HEMOGLOBIN 12.5 g/dl (12.0-16.0); LYMPHOCYTES # (AUTO) 0.6 X10'3 (1.1-4.8); LYMPHOCYTES % (AUTO) 6.5 % (21-51); MEAN CORPUSCULAR HEMOGLOBIN 27.6 PG (27.0-31.0); MEAN CORPUSCULAR HGB CONC 32.8 g/dL (33.0-36.5); MEAN CORPUSCULAR VOLUME 84.2 FL (78-98); MEAN PLATELET VOLUME 8.3 FL (7.4-10.4); MONOCYTES # (AUTO) 0.2 X10'3 (0-0.9); MONOCYTES % (AUTO) 2.4 % (2-12); NEUTROPHILS # (AUTO) 8.1 X10'3 (1.8-7.7); NEUTROPHILS % (AUTO) 90.7 % (42-75); PLATELET COUNT 230 X10'3 (140-440); RED BLOOD COUNT 4.54 X10'6 (4.20-5.60)
[2019-08-15 09:51] LABS: CLARITY,URINE CLEAR (Clear); COLOR,URINE YELLOW (Yellow); GLUCOSE, URINE NEGATIVE (Neg); KETONES,URINE 15 mg/dl (Neg); LEUKOCYTE ESTERASE ,URINE NEGATIVE (Neg); NITRITES, URINE NEGATIVE (Neg); OCCULT BLOOD,URINE SMALL (Neg); PH,URINE 7.5 (4.8-8.0); PROTEIN,URINE NEGATIVE (Neg); UROBILINOGEN,URINE 0.2 E.U/dL (0.2-1.0)
[2019-08-15 09:54] LABS: UA COLLECTION TYPE STRAIGHT CATH
[2019-08-15 09:56] LABS: BACTERIA,URINE NONE SEEN /HPF (Neg); MUCUS STRANDS FEW /LPF (Neg); SQUAMOUS EPITHELIAL CELL,UR FEW /LPF (FEW); WBC,URINE NONE SEEN /HPF (0-4)
[2019-08-15] MEDS ORDERED: proCHLORperazine 10 MG/2 ml inj IV ONE (10:00)
[2019-08-15] MEDS ORDERED: ketorolac tromethamine 15mg/ml inj. IV ONE (10:00)
[2019-08-15] MEDS ORDERED: famotidine/PF 10 mg/ml inj IV ONE (10:00)
[2019-08-15 10:04] LABS: ALANINE AMINOTRANSFERASE 20 U/L (12-78); ALBUMIN 3.3 G/DL (3.4-5.0); ALBUMIN/GLOBULIN RATIO 0.8 (1.1-1.5); ALKALINE PHOSPHATASE 77 IU/L (46-116); ANION GAP 10 (8-16); ASPARTATE AMINO TRANSFERASE 23 U/L (10-37); BILIRUBIN,TOTAL 0.5 MG/DL (0.1-1.0); BLOOD UREA NITROGEN 12 MG/DL (7-18); BUN/CREATININE RATIO 14.5 (6.6-38.0); CALCIUM 8.9 MG/DL (8.5-10.1); CHLORIDE 102 MMOL/L (99-107); CREATININE 0.83 MG/DL (0.40-0.90); GLUCOSE 141 MG/DL (70-104); POTASSIUM 3.1 MMOL/L (3.5-5.1); SODIUM 142 MMOL/L (135-145); TOTAL CARBON DIOXIDE 29.9 MMOL/L (24-32); TOTAL PROTEIN 7.2 G/DL (6.4-8.2); eGFR 67 ML/MIN
[2019-08-15] MEDS ORDERED: POTA20TA19 PO (10:10)
[2019-08-15] MEDS ORDERED: ONDA8TAB6 PO (10:10)
[2019-08-15 10:11] LABS: LIPASE < 50 U/L (73-393); MAGNESIUM 1.4 MG/DL (1.5-2.4)
[2019-08-15] MEDS ORDERED: furosemide 10 MG/1 ML 10ml inj IV ONE (10:20)
[2019-08-15] MEDS ORDERED: POTASSIUM BICARB 20meq eff tab 20 MEQ TABLET.EFF PO ONE (11:05)
[2019-08-15 12:17] VITALS: BP 155/63
--- NOTE | 2019-08-15 12:18 | NUR ---
Assisted to the bedside commode to void urine.
--- NOTE | 2019-08-15 12:44 | NUR ---
TC TO RELATIVES AT [facility]. FAMILY MEMBER STATES THAT SOMEONE WILL BE ON THE WAY FOR DC TRANSPORTATION.
== END 2019-08-15 13:37 | disposition home or self-care (01) ==
LOC: ER 07:59
DX: K52.9 Noninfective gastroenteritis and colitis, unspecified (principal); R11.2 Nausea with vomiting, unspecified; I48.91 Unspecified atrial fibrillation; I10 Essential (primary) hypertension; J44.9 Chronic obstructive pulmonary disease, unspecified; Z87.19 Personal history of other diseases of the digestive system; G47.30 Sleep apnea, unspecified; Z88.6 Allergy status to analgesic agent; Z79.899 Other long term (current) drug therapy; Z98.890 Other specified postprocedural states; Z86.14 Personal history of Methicillin resistant Staphylococcus aureus infection; Z90.49 Acquired absence of other specified parts of digestive tract; Z95.1 Presence of aortocoronary bypass graft
CPT/HCPCS: 36415; 71045; 80053; 81001; 83605; 83690; 83735; 83880; 84484; 85025; 93005; 96361; 96374; 96375; 99284; J0780; J1885; J1940; J2405; J3490; J7030

== ENCOUNTER 2019-09-07 17:34 | Emergency (ER) | payer MEDICARE, OTHER ==
[~2019-09-07] VITALS: Ht 165.1 cm; Wt 85.2 kg
[~2019-09-07 17:34] MED LIST changes: +OMEP-297 PO; -OMEP20CA11 PO; +ONDA8TAB6 PO; +POTA20TA19 PO
[2019-09-07 18:51] LABS: BASOPHILS % (AUTO) 0.5 % (0-1); EOSINOPHILS # (AUTO) 0.2 X10'3 (0-0.9); EOSINOPHILS % (AUTO) 2.4 % (0-6); HEMATOCRIT 35.2 % (35.0-45.0); HEMOGLOBIN 11.5 g/dl (12.0-16.0); LYMPHOCYTES # (AUTO) 2.2 X10'3 (1.1-4.8); LYMPHOCYTES % (AUTO) 30.7 % (21-51); MEAN CORPUSCULAR HEMOGLOBIN 27.6 PG (27.0-31.0); MEAN CORPUSCULAR HGB CONC 32.6 g/dL (33.0-36.5); MEAN CORPUSCULAR VOLUME 84.7 FL (78-98); MEAN PLATELET VOLUME 8.5 FL (7.4-10.4); MONOCYTES # (AUTO) 0.7 X10'3 (0-0.9); MONOCYTES % (AUTO) 9.3 % (2-12); NEUTROPHILS # (AUTO) 4.2 X10'3 (1.8-7.7); NEUTROPHILS % (AUTO) 57.1 % (42-75); PLATELET COUNT 215 X10'3 (140-440); RED BLOOD COUNT 4.15 X10'6 (4.20-5.60); RED CELL DISTRIBUTION WIDTH 14.6 % (11.5-14.5); WHITE BLOOD COUNT 7.3 X10'3 (4.5-11.0)
[2019-09-07 19:14] LABS: ALANINE AMINOTRANSFERASE 16 U/L (12-78); ALBUMIN 2.9 G/DL (3.4-5.0); ALBUMIN/GLOBULIN RATIO 0.7 (1.1-1.5); ALKALINE PHOSPHATASE 81 IU/L (46-116); ANION GAP 6 (8-16); ASPARTATE AMINO TRANSFERASE 20 U/L (10-37); BILIRUBIN,TOTAL 0.4 MG/DL (0.1-1.0); BLOOD UREA NITROGEN 10 MG/DL (7-18); BUN/CREATININE RATIO 9.8 (6.6-38.0); CALCIUM 8.6 MG/DL (8.5-10.1); CHLORIDE 103 MMOL/L (99-107); CREATININE 1.02 MG/DL (0.40-0.90); GLUCOSE 119 MG/DL (70-104); POTASSIUM 3.5 MMOL/L (3.5-5.1); SODIUM 142 MMOL/L (135-145); TOTAL CARBON DIOXIDE 33.3 MMOL/L (24-32); TOTAL PROTEIN 6.9 G/DL (6.4-8.2); eGFR 53 ML/MIN
[2019-09-07] MEDS ORDERED: benzonatate 100mg capsule PO ONE (20:05)
[2019-09-07] MEDS ORDERED: AZIT-63 PO (21:03)
[2019-09-07] MEDS ORDERED: BENZ-16 PO (21:03)
[2019-09-07] MEDS ORDERED: azithromycin 250mg tablet PO ONE (21:05)
--- NOTE | 2019-09-07 21:24 | NUR ---
pt's sat on room air 88-89%. pt states she uses oxygen at home at 2 lpm and that this is normal for her. notified, ok to discharge pt home to use her home oxygen
[2019-09-07 21:30] VITALS: BP 117/55
== END 2019-09-07 21:32 | disposition home or self-care (01) ==
LOC: ER 17:35
DX: J20.9 Acute bronchitis, unspecified (principal); I48.91 Unspecified atrial fibrillation; I25.10 Atherosclerotic heart disease of native coronary artery without angina pectoris; I10 Essential (primary) hypertension; J44.9 Chronic obstructive pulmonary disease, unspecified; M19.90 Unspecified osteoarthritis, unspecified site; Z86.14 Personal history of Methicillin resistant Staphylococcus aureus infection; Z95.5 Presence of coronary angioplasty implant and graft; Z90.49 Acquired absence of other specified parts of digestive tract; Z95.0 Presence of cardiac pacemaker; Z87.891 Personal history of nicotine dependence; Z88.5 Allergy status to narcotic agent; Z79.899 Other long term (current) drug therapy
CPT/HCPCS: 36415; 71046; 80053; 83605; 84484; 85025; 87040; 87077; 87185; 93005; 99284

== ENCOUNTER 2021-03-27 21:07 | Emergency (ER) | payer MEDICARE, OTHER ==
[~2021-03-27] VITALS: Ht 165.1 cm; Wt 81.0 kg
[~2021-03-27 21:07] MED LIST changes: -ASCO500C15 PO; +ASCO500C18 PO; -CALC-1197 PO; +CALC-1215 PO; -OMEP-297 PO; +OMEP20CA15 PO; -POTA20TA19 PO
[2021-03-27 21:50] LABS: ALANINE AMINOTRANSFERASE 21 U/L (12-78); ALBUMIN 3.2 G/DL (3.4-5.0); ALKALINE PHOSPHATASE 73 IU/L (46-116); ANION GAP 7 (8-16); ASPARTATE AMINO TRANSFERASE 24 U/L (10-37); BILIRUBIN,TOTAL 0.3 MG/DL (0.1-1.0); BLOOD UREA NITROGEN 14 MG/DL (7-18); BUN/CREATININE RATIO 15.2 (6.6-38.0); CALCIUM 8.2 MG/DL (8.5-10.1); CHLORIDE 106 MMOL/L (99-107); CREATININE 0.92 MG/DL (0.40-0.90); GLUCOSE 105 MG/DL (70-104); SODIUM 143 MMOL/L (135-145); TOTAL CARBON DIOXIDE 30.3 MMOL/L (24-32); TOTAL PROTEIN 6.4 G/DL (6.4-8.2); eGFR 59 ML/MIN
[2021-03-27 21:51] LABS: BASOPHILS % (AUTO) 0.7 % (0-1); EOSINOPHILS # (AUTO) 0.2 X10'3 (0-0.9); EOSINOPHILS % (AUTO) 3.6 % (0-6); HEMATOCRIT 32.2 % (35.0-45.0); HEMOGLOBIN 10.4 g/dl (12.0-16.0); LYMPHOCYTES % (AUTO) 38.3 % (21-51); MEAN CORPUSCULAR HEMOGLOBIN 27.2 PG (27.0-31.0); MEAN CORPUSCULAR HGB CONC 32.4 g/dL (33.0-36.5); MEAN PLATELET VOLUME 8.8 FL (7.4-10.4); MONOCYTES # (AUTO) 0.6 X10'3 (0-0.9); NEUTROPHILS # (AUTO) 2.4 X10'3 (1.8-7.7); NEUTROPHILS % (AUTO) 46.4 % (42-75); PLATELET COUNT 169 X10'3 (140-440); RED BLOOD COUNT 3.84 X10'6 (4.20-5.60); RED CELL DISTRIBUTION WIDTH 15.4 % (11.5-14.5); WHITE BLOOD COUNT 5.2 X10'3 (4.5-11.0)
[2021-03-27 21:58] LABS: TROPONIN I < 0.04 NG/ML (0.0-0.05)
[2021-03-27] MEDS ORDERED: diltiazem 5mg/ml 5ml inj. IV ONE (22:50)
[2021-03-27] MEDS ORDERED: normal saline 1000ml 1,000 ML IV ONE (22:50)
--- NOTE | 2021-03-27 23:40 | NUR ---
Slight drop in rate with vagal manuevers but no rhythm conversion
[2021-03-28] MEDS ORDERED: VORT10TA PO (00:16)
[2021-03-28] MEDS ORDERED: CELE100C98 PO (00:29)
[2021-03-28] MEDS ORDERED: AZEL6DRO5 EACHEYE (00:29)
[2021-03-28] MEDS ORDERED: FURO20TA4 PO (00:29)
[2021-03-28] MEDS ORDERED: MIRA25TA PO (00:30)
[2021-03-28] MEDS ORDERED: DILT-36 PO (00:32)
[2021-03-28 00:48] VITALS: BP 147/80
== END 2021-03-28 00:49 | disposition home or self-care (01) ==
LOC: ER 21:07
DX: I48.91 Unspecified atrial fibrillation (principal); I25.10 Atherosclerotic heart disease of native coronary artery without angina pectoris; I10 Essential (primary) hypertension; J44.9 Chronic obstructive pulmonary disease, unspecified; G47.39 Other sleep apnea; M19.90 Unspecified osteoarthritis, unspecified site; Z98.890 Other specified postprocedural states; Z90.49 Acquired absence of other specified parts of digestive tract; Z95.1 Presence of aortocoronary bypass graft; Z95.0 Presence of cardiac pacemaker; Z87.891 Personal history of nicotine dependence; Z88.6 Allergy status to analgesic agent; Z79.899 Other long term (current) drug therapy
CPT/HCPCS: 36415; 71045; 80053; 83880; 84484; 85025; 93005; 96361; 96374; 99285; J7030; J3490

== ENCOUNTER 2022-01-02 12:35 | Emergency (ER) | payer MEDICARE, OTHER ==
[~2022-01-02] VITALS: Ht 165.1 cm; Wt 74.0 kg
[~2022-01-02 12:35] MED LIST changes: -ASCO500C18 PO; +AZEL6DRO5 EACHEYE; -CALC-1215 PO; +CELE100C98 PO; +DILT-36 PO; -DILT120C51 PO; -DOCU100C41 PO; +FURO20TA4 PO; +MIRA25TA PO; -MULT-1085 PO; -ONDA8TAB6 PO; +VORT10TA PO
[2022-01-02 13:17] LABS: EOSINOPHILS # (AUTO) 0.1 X10'3 (0-0.9); EOSINOPHILS % (AUTO) 2.9 % (0-6); HEMATOCRIT 29.7 % (35.0-45.0); HEMOGLOBIN 9.2 g/dl (12.0-16.0); LYMPHOCYTES # (AUTO) 1.2 X10'3 (1.1-4.8); LYMPHOCYTES % (AUTO) 27.3 % (21-51); MEAN CORPUSCULAR HGB CONC 31.1 g/dL (33.0-36.5); MEAN CORPUSCULAR VOLUME 80.3 FL (78-98); MEAN PLATELET VOLUME 8.5 FL (7.4-10.4); MONOCYTES # (AUTO) 0.4 X10'3 (0-0.9); MONOCYTES % (AUTO) 10.1 % (2-12); NEUTROPHILS # (AUTO) 2.6 X10'3 (1.8-7.7); NEUTROPHILS % (AUTO) 58.7 % (42-75); PLATELET COUNT 220 X10'3 (140-440); RED CELL DISTRIBUTION WIDTH 15.8 % (11.5-14.5); WHITE BLOOD COUNT 4.4 X10'3 (4.5-11.0)
[2022-01-02 13:34] LABS: ALANINE AMINOTRANSFERASE 17 U/L (12-78); ALBUMIN 2.9 G/DL (3.4-5.0); ALKALINE PHOSPHATASE 54 IU/L (46-116); ANION GAP 3 (8-16); ASPARTATE AMINO TRANSFERASE 24 U/L (10-37); BILIRUBIN,TOTAL 0.2 MG/DL (0.1-1.0); BLOOD UREA NITROGEN 13 MG/DL (7-18); BUN/CREATININE RATIO 14.6 (6.6-38.0); CALCIUM 8.4 MG/DL (8.5-10.1); CHLORIDE 108 MMOL/L (99-107); CREATININE 0.89 MG/DL (0.40-0.90); GLUCOSE 129 MG/DL (70-104); SODIUM 146 MMOL/L (135-145); TOTAL CARBON DIOXIDE 35.5 MMOL/L (24-32); TOTAL PROTEIN 5.9 G/DL (6.4-8.2); eGFR 62 ML/MIN
[2022-01-02] MEDS ORDERED: SOTA80TA73 PO (14:20)
[2022-01-02] MEDS ORDERED: TRAZ-256 PO (14:20)
[2022-01-02] MEDS ORDERED: CETI10TA14 PO (14:20)
[2022-01-02] MEDS ORDERED: ATOR-2 PO (14:20)
[2022-01-02] MEDS ORDERED: RIVA20TA PO (14:20)
[2022-01-02] MEDS ORDERED: OMEP20CA16 PO (14:20)
[2022-01-02] MEDS ORDERED: GABA-534 PO (14:20)
[2022-01-02] MEDS ORDERED: FLUO20TA28 PO (14:20)
[2022-01-02] MEDS ORDERED: FLUO40CA PO (14:20)
[2022-01-02] MEDS ORDERED: NITR0.4T51 SL (14:24)
[2022-01-02 15:04] VITALS: BP 120/59
== END 2022-01-02 15:27 | disposition home or self-care (01) ==
LOC: ER 12:35
DX: R00.2 Palpitations (principal); I48.91 Unspecified atrial fibrillation; I25.10 Atherosclerotic heart disease of native coronary artery without angina pectoris; I10 Essential (primary) hypertension; J44.9 Chronic obstructive pulmonary disease, unspecified; M19.90 Unspecified osteoarthritis, unspecified site; Z86.14 Personal history of Methicillin resistant Staphylococcus aureus infection; Z90.89 Acquired absence of other organs; Z95.0 Presence of cardiac pacemaker; Z98.890 Other specified postprocedural states; Z88.5 Allergy status to narcotic agent; Z79.899 Other long term (current) drug therapy
CPT/HCPCS: 36415; 71045; 80053; 83880; 84484; 85025; 93005; 99285

== ENCOUNTER 2022-03-09 10:20 | Inpatient (IN) | payer MEDICARE, OTHER ==
[~2022-03-09] VITALS: Ht 170.2 cm; Wt 77.3 kg
[~2022-03-09 10:20] MED LIST changes: +ATOR-2 PO; -ATOR40TA PO; -AZEL6DRO5 EACHEYE; +CETI10TA14 PO; -FLUO20TA28 PO; +FLUO40CA PO; -HYDR-4353 PO; -LEVO75TA7 PO; +NITR0.4T51 SL; -OMEP20CA15 PO; +OMEP20CA16 PO; -SOTA80TA26 PO; +SOTA80TA73 PO; -TRAZ-251 PO; +TRAZ-256 PO; -VORT10TA PO; -ZET10T PO
[2022-03-09] MEDS ORDERED: morphine 4 MG/ML inj SYRINge ONE (10:28)
[2022-03-09] MEDS ORDERED: morphine 2 MG/ML inj. syringe IV ONE ×2 (10:30)
[2022-03-09] MEDS ORDERED: LIDOcaine 2% 10ml TOPICAL JELLY (Urojet) TP ONE (10:30)
[2022-03-09] MEDS ORDERED: naloxone 0.4 mg/ml inj IV ONE ×2 (10:30)
[2022-03-09 10:34] LABS: ABG BASE EXCESS 1.6 mmol/L (-2.0-2.0); ABG HCO3 30.8 mmol/L (22.0-26.0); ABG OXYGEN SATURATION 86.4 % (94-97); ABG PCO2 (T) 80.9 mmHg (32.0-45.0); ABG PO2 (T) 63.7 mmHg (75.0-100.0); ALLEN'S TEST POSITIVE; FCOHb 1.2 % (0.0-3.9); FLOW 2 L/min; FMetHb 0.3 % (0.0-1.5); FO2Hb 85.1 % (94-97); TOTAL HEMOGLOBIN 9.3 G/dl (12.0-16.0)
[2022-03-09] MEDS ORDERED: EZET10TA6 PO (10:37)
[2022-03-09] MEDS ORDERED: LOPE-190 PO (10:37)
[2022-03-09] MEDS ORDERED: PRED5DRO23 EACHEYE (10:37)
--- NOTE | 2022-03-09 10:37 | NUR ---
RT AT BEDSIDE. PT PLACED ON BIPAP. 70% FIO2, RATE SET AT 8, PT RESPIRATIONS 33. NPA REMOVED BY RT
[2022-03-09 10:54] LABS: RED BLOOD COUNT 3.71 X10'6 (4.20-5.60)
[2022-03-09 10:56] LABS: BASOPHILS # (AUTO) 0.1 X10'3 (0-0.2); EOSINOPHILS # (AUTO) 0.2 X10'3 (0-0.9); EOSINOPHILS % (AUTO) 3.9 % (0-6); HEMATOCRIT 29.6 % (35.0-45.0); HEMOGLOBIN 8.6 g/dl (12.0-16.0); LYMPHOCYTES # (AUTO) 0.7 X10'3 (1.1-4.8); LYMPHOCYTES % (AUTO) 11.2 % (21-51); MEAN CORPUSCULAR HEMOGLOBIN 23.3 PG (27.0-31.0); MEAN CORPUSCULAR HGB CONC 29.1 g/dL (33.0-36.5); MEAN CORPUSCULAR VOLUME 79.9 FL (78-98); MEAN PLATELET VOLUME 8.2 FL (7.4-10.4); MONOCYTES # (AUTO) 0.3 X10'3 (0-0.9); MONOCYTES % (AUTO) 4.8 % (2-12); NEUTROPHILS % (AUTO) 79.1 % (42-75); PLATELET COUNT 241 X10'3 (140-440); RED CELL DISTRIBUTION WIDTH 16.9 % (11.5-14.5); WHITE BLOOD COUNT 6.3 X10'3 (4.5-11.0)
[2022-03-09 11:07] LABS: ALANINE AMINOTRANSFERASE 15 U/L (12-78); ALBUMIN 3.2 G/DL (3.4-5.0); ALBUMIN/GLOBULIN RATIO 0.9 (1.1-1.5); ALKALINE PHOSPHATASE 69 IU/L (46-116); ANION GAP 6 (8-16); ASPARTATE AMINO TRANSFERASE 24 U/L (10-37); BILIRUBIN,TOTAL 0.4 MG/DL (0.1-1.0); BLOOD UREA NITROGEN 12 MG/DL (7-18); BUN/CREATININE RATIO 15.8 (6.6-38.0); CALCIUM 8.5 MG/DL (8.5-10.1); CHLORIDE 107 MMOL/L (99-107); CREATININE 0.76 MG/DL (0.40-0.90); GLUCOSE 203 MG/DL (70-104); POTASSIUM 4.2 MMOL/L (3.5-5.1); SODIUM 145 MMOL/L (135-145); TOTAL CARBON DIOXIDE 31.8 MMOL/L (24-32); TOTAL PROTEIN 6.8 G/DL (6.4-8.2); eGFR 74 ML/MIN
[2022-03-09 11:14] LABS: C-REACTIVE PROTEIN 0.78 MG/DL (0.0-0.5)
[2022-03-09 11:26] LABS: ABG HCO3 29.2 mmol/L (22.0-26.0); ABG OXYGEN SATURATION 97.5 % (94-97); ABG PCO2 (T) 68.2 mmHg (32.0-45.0); ABG PO2 (T) 143.2 mmHg (75.0-100.0); ALLEN'S TEST POSITIVE; FCOHb 0.6 % (0.0-3.9); FMetHb 0.3 % (0.0-1.5); FO2Hb 96.6 % (94-97); PATIENT TEMPERATURE 36.8; RESPIRATORY RATE 8 b/min; TIDAL VOLUME 444 mL
[2022-03-09] MEDS ORDERED: magnesium 2GM in 50ml NS 50 ML IV ONE (11:35)
[2022-03-09] MEDS ORDERED: methylPREDNISolone sod succ 125mg/2ml vial IV ONE (11:35)
[2022-03-09 11:49] LABS: URINE AMPHETAMINE SCREEN NEGATIVE (Neg); URINE BARBITUATE SCREEN NEGATIVE (Neg); URINE BENZODIAZEPINES SCREEN NEGATIVE (Neg); URINE CANNABINOID SCREEN NEGATIVE (Neg); URINE COCAINE SCREEN NEGATIVE (Neg); URINE METHADONE SCREEN NEGATIVE (Neg); URINE OPIATE SCREEN POSITIVE (Neg); URINE PHENCYCLIDINE SCREEN NEGATIVE (Neg)
[2022-03-09] MEDS ORDERED: magnesium 2GM in 50ml NS 50 ML IV PRN (12:55)
[2022-03-09] MEDS ORDERED: ondansetron/PF 4mg/2ml inj IV PRN (12:55)
[2022-03-09] MEDS ORDERED: POTASSIUM BICARB 20meq eff tab 20 MEQ TABLET.EFF PO PRN ×2 (12:55)
[2022-03-09] MEDS ORDERED: magnesium 4gm in 100ml NS 100 ML IV PRN (12:55)
[2022-03-09] MEDS ORDERED: potassium CL 10mEq/100ml bag 100 ML IV PRN (12:55)
[2022-03-09] MEDS ORDERED: magnesium Cl slow-release 64mg tablet PO PRN (12:55)
[2022-03-09 13:32] LABS: MAGNESIUM 2.2 MG/DL (1.5-2.4); POTASSIUM 4.5 MMOL/L (3.5-5.1)
[2022-03-09 14:10] LABS: ABG BASE EXCESS 6.5 mmol/L (-2.0-2.0); ABG HCO3 34.1 mmol/L (22.0-26.0); ABG OXYGEN SATURATION 92.6 % (94-97); ALLEN'S TEST POSITIVE; FCOHb 1.1 % (0.0-3.9); FMetHb 0.3 % (0.0-1.5); FO2Hb 91.3 % (94-97); PATIENT TEMPERATURE 37.6; RESPIRATORY RATE 8 b/min; TIDAL VOLUME 672 mL
[2022-03-09 18:00] VITALS: BP 132/53
[2022-03-09] MEDS: docusate sod 100mg capsule PO SCH (20:00)
[2022-03-09] MEDS: heparin, porcine 5000 units/ml vial SQ SCH (20:00)
[2022-03-09] MEDS: K and/or MAG REPLACEMENT MC SCH ×2 (20:00→22:22)
[2022-03-09 22:00] VITALS: BP 151/72
[2022-03-09] MEDS: acetaminophen 325mg tablet PO PRN (22:37)
[2022-03-09] MEDS ORDERED: nitroGLYCERIN 0.4mg SUBLingual tab SL PRN (22:55)
[2022-03-09] MEDS: mirabegron 25mg ER tablet PO SCH (22:55)
[2022-03-10] MEDS ORDERED: HYDR-3972 PO (00:51)
[2022-03-10] MEDS: ezetimibe 10mg tablet PO SCH ×2 (01:14→08:40)
[2022-03-10] MEDS: diltiazem CD 180mg cap (once-daily) PO SCH ×2 (01:15→08:40)
[2022-03-10 02:00] VITALS: BP 145/54
[2022-03-10 06:00] VITALS: BP 147/62
[2022-03-10 06:25] LABS: BASOPHILS % (AUTO) 0.1 % (0-1); EOSINOPHILS % (AUTO) 0 % (0-6); HEMATOCRIT 27.2 % (35.0-45.0); HEMOGLOBIN 8.3 g/dl (12.0-16.0); LYMPHOCYTES # (AUTO) 0.7 X10'3 (1.1-4.8); LYMPHOCYTES % (AUTO) 12.1 % (21-51); MEAN CORPUSCULAR HEMOGLOBIN 23.6 PG (27.0-31.0); MEAN CORPUSCULAR HGB CONC 30.4 g/dL (33.0-36.5); MEAN CORPUSCULAR VOLUME 77.5 FL (78-98); MEAN PLATELET VOLUME 8.4 FL (7.4-10.4); MONOCYTES # (AUTO) 0.5 X10'3 (0-0.9); MONOCYTES % (AUTO) 8.6 % (2-12); NEUTROPHILS # (AUTO) 4.7 X10'3 (1.8-7.7); NEUTROPHILS % (AUTO) 79.2 % (42-75); PLATELET COUNT 223 X10'3 (140-440); RED BLOOD COUNT 3.52 X10'6 (4.20-5.60); RED CELL DISTRIBUTION WIDTH 16.8 % (11.5-14.5); WHITE BLOOD COUNT 5.9 X10'3 (4.5-11.0)
[2022-03-10 06:44] LABS: ALBUMIN 2.8 G/DL (3.4-5.0); ANION GAP 8 (8-16); BLOOD UREA NITROGEN 12 MG/DL (7-18); BUN/CREATININE RATIO 21.4 (6.6-38.0); CALCIUM 8.7 MG/DL (8.5-10.1); CHLORIDE 106 MMOL/L (99-107); CREATININE 0.56 MG/DL (0.40-0.90); GLUCOSE 105 MG/DL (70-104); MAGNESIUM 1.8 MG/DL (1.5-2.4); SODIUM 145 MMOL/L (135-145); TOTAL CARBON DIOXIDE 30.9 MMOL/L (24-32); eGFR > 90 ML/MIN
[2022-03-10 07:18] LABS: % IRON SATURATION 7 % (11-46); IRON 25 UG/DL (49-151); TOTAL IRON BINDING CAPACITY 342 UG/DL (259-388)
--- NOTE | 2022-03-10 08:30 | NUR ---
Malnutrition consult: Per MST pt reports 50lb wt loss in the last year. Wt from March 2021 shows 81kg, current wt 77kg, though not scaled. Wt hx in EMR does not support the reported amount of wt loss. No edema noted. No signs of muscle or fat wasting reported. Currently on Heart Healthy diet w/ 25% itnake of first meal. At this time pt does not meet minimum criteria for malnutrition. Addendum: 03/10/22 at [address] Amended: Links added.
[2022-03-10] MEDS: sotalol 80mg tablet PO SCH ×2 (08:39→20:42)
[2022-03-10] MEDS: FLUoxetine 20mg capsule PO SCH (08:40)
[2022-03-10] MEDS: pantoprazole 40mg Tablet.DR PO SCH (08:40)
[2022-03-10] MEDS: atorvastatin 20mg tablet PO SCH (08:40)
[2022-03-10] MEDS: gabapentin 400mg capsule PO SCH ×2 (08:41→20:42)
[2022-03-10] MEDS: heparin, porcine 5000 units/ml vial SQ SCH ×2 (08:42→20:42)
[2022-03-10] MEDS: docusate sod 100mg capsule PO SCH ×2 (08:43→20:42)
[2022-03-10] MEDS: methylPREDNISolone sod succ 125mg/2ml vial IV SCH ×2 (08:44→20:42)
[2022-03-10] MEDS: mirabegron 25mg ER tablet PO SCH (09:57)
[2022-03-10] MEDS: prednisoLONE acetate 1% ophth susp 5ml EACHEYE SCH ×3 (09:58→20:42)
[2022-03-10] MEDS: ipratropium 0.5 MG/2.5ML nebule IH SCH ×3 (10:01→20:27)
--- NOTE | 2022-03-10 10:15 | NUR ---
Pt on 3lpm NC, neb tx given, pt c/o nausea at this time, bipap on standby. RN notified of pt nausea, pt tolerating 3lpm NC. notified pt off bipap and no follow up abg at this time.
[2022-03-10 11:22] VITALS: BP 151/69
[2022-03-10 15:00] VITALS: BP 32/55
[2022-03-10] MEDS ORDERED: ondansetron 4mg rapidly disintigrating tab PO PRN (16:16)
[2022-03-10] MEDS ORDERED: PERFLUTREN PROTEIN-A MICROSPHR (Optison) 0.22 MG/ML 3ML VIAL IV ONE (17:05)
[2022-03-10 18:00] VITALS: BP 135/60
[2022-03-10] MEDS ORDERED: rivaroxaban 20mg tablet PO SCH (18:00)
--- NOTE | 2022-03-10 18:31 | NUR ---
Problems reprioritized. Patient report given, questions answered & plan of care reviewed with Will RN.
[2022-03-10] MEDS: traZODone 50mg tablet PO SCH (20:41)
[2022-03-10] MEDS: K and/or MAG REPLACEMENT MC SCH (20:42)
[2022-03-10 21:30] LABS: % IRON SATURATION 5 % (11-46); IRON 19 UG/DL (49-151); TOTAL IRON BINDING CAPACITY 346 UG/DL (259-388)
[2022-03-10 22:00] VITALS: BP 161/69
[2022-03-11 02:00] VITALS: BP 155/82
[2022-03-11] MEDS: ipratropium 0.5 MG/2.5ML nebule IH SCH ×4 (03:18→21:08)
[2022-03-11 06:00] VITALS: BP 154/82
--- NOTE | 2022-03-11 06:30 | NUR ---
Patient in room PCU 3012. I have received report from LIZBETH Montaño and had the opportunity to ask questions and assume patient care.
[2022-03-11 06:46] LABS: BASOPHILS % (AUTO) 0.1 % (0-1); EOSINOPHILS % (AUTO) 0 % (0-6); HEMATOCRIT 29.4 % (35.0-45.0); HEMOGLOBIN 9.1 g/dl (12.0-16.0); LYMPHOCYTES # (AUTO) 0.6 X10'3 (1.1-4.8); LYMPHOCYTES % (AUTO) 9.2 % (21-51); MEAN CORPUSCULAR HEMOGLOBIN 23.9 PG (27.0-31.0); MEAN CORPUSCULAR HGB CONC 30.8 g/dL (33.0-36.5); MEAN CORPUSCULAR VOLUME 77.6 FL (78-98); MEAN PLATELET VOLUME 8.3 FL (7.4-10.4); MONOCYTES # (AUTO) 0.2 X10'3 (0-0.9); MONOCYTES % (AUTO) 3.9 % (2-12); NEUTROPHILS # (AUTO) 5.2 X10'3 (1.8-7.7); NEUTROPHILS % (AUTO) 86.8 % (42-75); PLATELET COUNT 261 X10'3 (140-440); RED CELL DISTRIBUTION WIDTH 16.6 % (11.5-14.5)
[2022-03-11 06:48] LABS: ALBUMIN 2.9 G/DL (3.4-5.0); ANION GAP 7 (8-16); BLOOD UREA NITROGEN 16 MG/DL (7-18); BUN/CREATININE RATIO 23.9 (6.6-38.0); CALCIUM 8.9 MG/DL (8.5-10.1); CHLORIDE 105 MMOL/L (99-107); CREATININE 0.67 MG/DL (0.40-0.90); GLUCOSE 138 MG/DL (70-104); MAGNESIUM 1.8 MG/DL (1.5-2.4); POTASSIUM 4.2 MMOL/L (3.5-5.1); SODIUM 145 MMOL/L (135-145); TOTAL CARBON DIOXIDE 32.9 MMOL/L (24-32); eGFR 85 ML/MIN
[2022-03-11] MEDS: K and/or MAG REPLACEMENT MC SCH ×2 (08:00→20:00)
[2022-03-11] MEDS: FLUoxetine 20mg capsule PO SCH (08:04)
[2022-03-11] MEDS: ezetimibe 10mg tablet PO SCH (08:04)
[2022-03-11] MEDS: gabapentin 400mg capsule PO SCH ×2 (08:04→21:34)
[2022-03-11] MEDS: mirabegron 25mg ER tablet PO SCH (08:04)
[2022-03-11] MEDS: diltiazem CD 180mg cap (once-daily) PO SCH (08:04)
[2022-03-11] MEDS: sotalol 80mg tablet PO SCH ×2 (08:04→21:33)
[2022-03-11] MEDS: atorvastatin 20mg tablet PO SCH (08:04)
[2022-03-11] MEDS: pantoprazole 40mg Tablet.DR PO SCH (08:05)
[2022-03-11] MEDS: methylPREDNISolone sod succ 125mg/2ml vial IV SCH ×2 (08:05→21:36)
[2022-03-11] MEDS: docusate sod 100mg capsule PO SCH ×2 (08:06→21:35)
[2022-03-11] MEDS: heparin, porcine 5000 units/ml vial SQ SCH ×2 (08:06→21:36)
[2022-03-11] MEDS: prednisoLONE acetate 1% ophth susp 5ml EACHEYE SCH ×3 (08:15→21:36)
[2022-03-11] MEDS: acetaminophen 325mg tablet PO PRN (08:21)
[2022-03-11 11:00] VITALS: BP 154/82
[2022-03-11 15:00] VITALS: BP_SYST 139; BP_SYST 148; BP_DIAS 68; BP_DIAS 79
--- NOTE | 2022-03-11 18:30 | NUR ---
Problems reprioritized. Patient report given, questions answered & plan of care reviewed with LIZBETH Montaño.
[2022-03-11 19:00] VITALS: BP 149/73
[2022-03-11] MEDS: HYDROcodone/acetaminophen 10/325mg tab PO SCH (21:33)
[2022-03-11] MEDS: ferrous sulfate 325mg tablet PO SCH (21:34)
[2022-03-11] MEDS: furosemide 20MG tablet PO SCH (21:35)
[2022-03-11] MEDS: traZODone 50mg tablet PO SCH (21:36)
--- NOTE | 2022-03-12 00:07 | NUR ---
Patient in room PCU 3012. I have received report from LIZBETH Ruth and had the opportunity to ask questions and assume patient care.
--- NOTE | 2022-03-12 00:31 | NUR ---
Patient sleeping comfortably, rise and fall of chest witnessed. Vitals are WNL, she is in Afib w/controlled rate.
[2022-03-12 02:00] VITALS: BP 142/82
[2022-03-12] MEDS: HYDROcodone/acetaminophen 10/325mg tab PO SCH ×2 (02:07→08:20)
[2022-03-12] MEDS: ipratropium 0.5 MG/2.5ML nebule IH SCH ×2 (03:00→07:58)
[2022-03-12 05:55] LABS: BASOPHILS % (AUTO) 0 % (0-1); EOSINOPHILS % (AUTO) 0 % (0-6); HEMATOCRIT 28.8 % (35.0-45.0); LYMPHOCYTES # (AUTO) 0.8 X10'3 (1.1-4.8); LYMPHOCYTES % (AUTO) 10.7 % (21-51); MEAN CORPUSCULAR HEMOGLOBIN 24.1 PG (27.0-31.0); MEAN CORPUSCULAR HGB CONC 31.2 g/dL (33.0-36.5); MEAN CORPUSCULAR VOLUME 77.2 FL (78-98); MEAN PLATELET VOLUME 8.2 FL (7.4-10.4); MONOCYTES # (AUTO) 0.5 X10'3 (0-0.9); MONOCYTES % (AUTO) 6.4 % (2-12); NEUTROPHILS # (AUTO) 5.9 X10'3 (1.8-7.7); NEUTROPHILS % (AUTO) 82.9 % (42-75); PLATELET COUNT 256 X10'3 (140-440); RED BLOOD COUNT 3.73 X10'6 (4.20-5.60); RED CELL DISTRIBUTION WIDTH 16.8 % (11.5-14.5); WHITE BLOOD COUNT 7.1 X10'3 (4.5-11.0)
[2022-03-12 06:02] LABS: ALBUMIN 2.8 G/DL (3.4-5.0); ANION GAP 5 (8-16); BLOOD UREA NITROGEN 20 MG/DL (7-18); BUN/CREATININE RATIO 25.3 (6.6-38.0); CALCIUM 8.8 MG/DL (8.5-10.1); CHLORIDE 106 MMOL/L (99-107); CREATININE 0.79 MG/DL (0.40-0.90); GLUCOSE 131 MG/DL (70-104); MAGNESIUM 1.6 MG/DL (1.5-2.4); SODIUM 144 MMOL/L (135-145); TOTAL CARBON DIOXIDE 32.6 MMOL/L (24-32); eGFR 71 ML/MIN
--- NOTE | 2022-03-12 06:24 | NUR ---
Problems reprioritized. Patient report given, questions answered & plan of care reviewed with LIZBETH New.
--- NOTE | 2022-03-12 06:57 | NUR ---
THIS PATIENT ASSIGNED TO ME, THE NOC NURSE ASSIGNED DID NOT GIVE ME REPORT BEFORE LEAVING SIGNING OUT AND LEAVING THE BUILDING. CHARGE NURSE AND NURSING UNIT CLERK NOTIFIED.
--- NOTE | 2022-03-12 07:00 | NUR ---
WAS TOLD BY LINE RUNNER TO CALL NOC NURSE AND GET REPORT ON PATIENT VIA TELEPHONE, NOC NURSE LIVES IN RED BLUFF AND REFUSES TO COME BACK TO GIVE FACE TO FACE REPORT.
--- NOTE | 2022-03-12 07:02 | NUR ---
[facility] SHIFT NURSE CHRISTIAN ROBISON GAVE ME REPORT VIA TELEPHONE. MINIMAL INFORMATION REPORTED, NOC NURSE STATED SHE ASSUMED CARE AT 0100. "DID NOT PERFORM PHYSICAL ASSESSMENT, AND MINIMAL INTERACTION WITH PT TO BE ABLE TO ASSESS HOW PT AMBULATES, VOIDS, IF ON IV FLUIDS OR TELEMETRY" I WILL READ THROUGH NOTES AND GATHER MUCH INFORMATION POSSIBLE AND ASSUME CARE
[2022-03-12] MEDS: K and/or MAG REPLACEMENT MC SCH (08:00)
[2022-03-12] MEDS: methylPREDNISolone sod succ 125mg/2ml vial IV SCH (08:19)
[2022-03-12] MEDS: docusate sod 100mg capsule PO SCH (08:19)
[2022-03-12] MEDS: atorvastatin 20mg tablet PO SCH (08:19)
[2022-03-12] MEDS: ezetimibe 10mg tablet PO SCH (08:19)
[2022-03-12] MEDS: ferrous sulfate 325mg tablet PO SCH (08:19)
[2022-03-12] MEDS: pantoprazole 40mg Tablet.DR PO SCH (08:19)
[2022-03-12] MEDS: gabapentin 400mg capsule PO SCH (08:19)
[2022-03-12] MEDS: diltiazem CD 180mg cap (once-daily) PO SCH (08:20)
[2022-03-12] MEDS: sotalol 80mg tablet PO SCH (08:20)
[2022-03-12] MEDS: FLUoxetine 20mg capsule PO SCH (08:20)
[2022-03-12] MEDS: furosemide 20MG tablet PO SCH (08:20)
[2022-03-12] MEDS: prednisoLONE acetate 1% ophth susp 5ml EACHEYE SCH (08:20)
[2022-03-12] MEDS: mirabegron 25mg ER tablet PO SCH (08:20)
[2022-03-12] MEDS: heparin, porcine 5000 units/ml vial SQ SCH (08:22)
[2022-03-12] MEDS ORDERED: IPRA3AMP9 IH (09:43)
[2022-03-12] MEDS ORDERED: PRED20TA PO (09:43)
[2022-03-12] MEDS ORDERED: FER325T PO (09:43)
== END 2022-03-12 13:20 | disposition home or self-care (01) | DRG 189 ==
LOC: ER 10:20 → ED HOLD 13:07 → EDBEDREQ 14:23 → PCU 3S 15:08
PROVIDERS: ADMIT Internal Medicine; ATTEND Internal Medicine
PROC: 5A09357 Assistance with Respiratory Ventilation, Less than 24 Consecutive Hours, Continuous Positive Airway Pressure (ICD-10-PCS; principal; 2022-03-09)
DX: J96.22 Acute and chronic respiratory failure with hypercapnia (principal); I21.A1 Myocardial infarction type 2; I50.33 Acute on chronic diastolic (congestive) heart failure; J44.1 Chronic obstructive pulmonary disease with (acute) exacerbation; E87.2 Acidosis; I11.0 Hypertensive heart disease with heart failure; I48.91 Unspecified atrial fibrillation; I25.10 Atherosclerotic heart disease of native coronary artery without angina pectoris; Z20.822 Contact with and (suspected) exposure to COVID-19; Z96.653 Presence of artificial knee joint, bilateral; K57.90 Diverticulosis of intestine, part unspecified, without perforation or abscess without bleeding; K21.9 Gastro-esophageal reflux disease without esophagitis; R32 Unspecified urinary incontinence; G47.30 Sleep apnea, unspecified; G62.9 Polyneuropathy, unspecified; M19.90 Unspecified osteoarthritis, unspecified site; G89.29 Other chronic pain; D50.9 Iron deficiency anemia, unspecified; E78.5 Hyperlipidemia, unspecified; F32.A Depression, unspecified; I25.2 Old myocardial infarction; Z79.01 Long term (current) use of anticoagulants; Z93.3 Colostomy status; Z95.1 Presence of aortocoronary bypass graft; Z88.5 Allergy status to narcotic agent; Z95.0 Presence of cardiac pacemaker; Z98.61 Coronary angioplasty status; Z79.899 Other long term (current) drug therapy
CPT/HCPCS: 36415; 36600; 71045; 80048; 80053; 80305; 82803; 82948; 83540; 83550; 83605; 83735; 83880; 84132; 84484; 85018; 85025; 85610; 86140; 87081; 87635; 93005; 93306; 94640; 94660; 94760; 94799; 96374; 96375; 97116; 97161; 97530; 99285; A4615; C9803; G0378; J1644; J2270; J2310; J2405; J2930; J3475

== ENCOUNTER 2022-04-11 16:04 | Inpatient (IN) | payer MEDICARE, OTHER ==
[~2022-04-11] VITALS: Ht 167.6 cm; Wt 76.1 kg
[~2022-04-11 16:04] MED LIST changes: +EZET10TA6 PO; +FER325T PO; +HYDR-3972 PO; +IPRA3AMP9 IH; +LOPE-190 PO; +PRED20TA PO; +PRED5DRO23 EACHEYE
[2022-04-11] MEDS ORDERED: diltiazem 5mg/ml 5ml inj. IV ONE ×3 (17:15→18:50)
[2022-04-11 17:37] LABS: BASOPHILS % (AUTO) 0.9 % (0-1); EOSINOPHILS # (AUTO) 0.1 X10'3 (0-0.9); EOSINOPHILS % (AUTO) 2.6 % (0-6); HEMOGLOBIN 9.9 g/dl (12.0-16.0); LYMPHOCYTES # (AUTO) 0.4 X10'3 (1.1-4.8); LYMPHOCYTES % (AUTO) 13.4 % (21-51); MEAN CORPUSCULAR HEMOGLOBIN 25.6 PG (27.0-31.0); MEAN CORPUSCULAR HGB CONC 30.8 g/dL (33.0-36.5); MEAN CORPUSCULAR VOLUME 83.3 FL (78-98); MEAN PLATELET VOLUME 8.2 FL (7.4-10.4); MONOCYTES # (AUTO) 0.4 X10'3 (0-0.9); MONOCYTES % (AUTO) 12.6 % (2-12); NEUTROPHILS # (AUTO) 2.3 X10'3 (1.8-7.7); NEUTROPHILS % (AUTO) 70.5 % (42-75); PLATELET COUNT 165 X10'3 (140-440); RED BLOOD COUNT 3.85 X10'6 (4.20-5.60); RED CELL DISTRIBUTION WIDTH 21.9 % (11.5-14.5); WHITE BLOOD COUNT 3.3 X10'3 (4.5-11.0)
[2022-04-11] MEDS ORDERED: acetaminophen 325mg tablet PO ONE (17:45)
[2022-04-11] MEDS ORDERED: diltiazem-D5W 125mg/125ml 125 ML IV SCH (17:45)
[2022-04-11 17:47] LABS: ALANINE AMINOTRANSFERASE 16 U/L (12-78); ALBUMIN 2.8 G/DL (3.4-5.0); ALBUMIN/GLOBULIN RATIO 0.9 (1.1-1.5); ALKALINE PHOSPHATASE 66 IU/L (46-116); ANION GAP 2 (8-16); ASPARTATE AMINO TRANSFERASE 25 U/L (10-37); BILIRUBIN,TOTAL 0.4 MG/DL (0.1-1.0); BLOOD UREA NITROGEN 10 MG/DL (7-18); BUN/CREATININE RATIO 15.2 (6.6-38.0); CALCIUM 8.4 MG/DL (8.5-10.1); CHLORIDE 106 MMOL/L (99-107); CREATININE 0.66 MG/DL (0.40-0.90); GLUCOSE 93 MG/DL (70-104); POTASSIUM 4.1 MMOL/L (3.5-5.1); SODIUM 141 MMOL/L (135-145); eGFR 87 ML/MIN
[2022-04-11] MEDS ORDERED: dexamethasone sod phosphate 10mg/ml inj IV STA (17:56)
[2022-04-11] MEDS ORDERED: REMDESIVIR INJ 200 MG in normal saline 100ml IV soln 100 ML IV ONE (18:00)
[2022-04-11] MEDS ORDERED: labetalol 20mg/4ml (5mg/ml) syringe IV ONE ×2 (18:10→18:45)
[2022-04-11] MEDS ORDERED: furosemide 10 MG/1 ML 10ml inj IV ONE (18:10)
[2022-04-11 18:14] LABS: ANISOCYTOSIS 3+; BURR CELLS FEW; ELLIPTOCYTES FEW; PLATELET ESTIMATE NORMAL; SCHISTOCYTES FEW
--- NOTE | 2022-04-11 18:42 | NUR ---
First encounter with pt that is covid positive with afib rvr and SOB. Pt is in the cart with no needs at this time on classroom monitor
[2022-04-11] MEDS: diltiazem-NS 100mg/100ml 100 ML IV SCH ×2 (18:52→19:41)
--- NOTE | 2022-04-11 19:44 | NUR ---
pt was palced onto commode and given clean bedding and warm blankets.
[2022-04-11 20:15] LABS: D-DIMER 0.49 MG/L FEU (0-0.50)
[2022-04-11] MEDS ORDERED: magnesium Cl slow-release 64mg tablet PO PRN (20:15)
[2022-04-11] MEDS ORDERED: magnesium 4gm in 100ml NS 100 ML IV PRN (20:15)
[2022-04-11] MEDS ORDERED: magnesium 2GM in 50ml NS 50 ML IV PRN (20:15)
[2022-04-11] MEDS ORDERED: POTASSIUM BICARB 20meq eff tab 20 MEQ TABLET.EFF PO PRN (20:15)
[2022-04-11] MEDS ORDERED: acetaminophen 325mg tablet PO PRN (20:15)
[2022-04-11] MEDS ORDERED: mag hydrox/Alum hydrox/simeth 30ml oral suspension PO PRN (20:15)
[2022-04-11 20:21] LABS: C-REACTIVE PROTEIN 1.03 MG/DL (0.0-0.5)
[2022-04-11] MEDS ORDERED: sotalol HCl 40mg (1/2 tablet) PO ONE (20:25)
[2022-04-11] MEDS: normal saline 1000ml 1,000 ML IV SCH (21:10)
[2022-04-11 22:40] LABS: CLARITY,URINE CLEAR (Clear); GLUCOSE, URINE NEGATIVE (Neg); KETONES,URINE TRACE mg/dl (Neg); LEUKOCYTE ESTERASE ,URINE NEGATIVE (Neg); NITRITES, URINE NEGATIVE (Neg); OCCULT BLOOD,URINE TRACE-INTACT (Neg); PROTEIN,URINE NEGATIVE (Neg); UROBILINOGEN,URINE 0.2 E.U/dL (0.2-1.0)
[2022-04-11 22:55] LABS: COLOR,URINE STRAW (Yellow); UA COLLECTION TYPE CLN CATCH MIDSTREAM
[2022-04-11 23:01] LABS: BACTERIA,URINE NONE SEEN /HPF (Neg); MUCUS STRANDS NONE SEEN /LPF (Neg); RBC,URINE 0-2 /HPF (0-2); SQUAMOUS EPITHELIAL CELL,UR FEW /LPF (FEW); WBC,URINE 0-4 /HPF (0-4)
--- NOTE | 2022-04-11 23:14 | NUR ---
Dr Herrera requestd pt to go up to 20 ml/hr on cardizem drip
[2022-04-11 23:27] LABS: MAGNESIUM 1.4 MG/DL (1.5-2.4); POTASSIUM 3.6 MMOL/L (3.5-5.1)
[2022-04-12 07:35] LABS: BASOPHILS % (AUTO) 0.6 % (0-1); EOSINOPHILS % (AUTO) 0 % (0-6); HEMATOCRIT 33.4 % (35.0-45.0); HEMOGLOBIN 10.3 g/dl (12.0-16.0); LYMPHOCYTES # (AUTO) 0.6 X10'3 (1.1-4.8); MEAN CORPUSCULAR HEMOGLOBIN 25.4 PG (27.0-31.0); MEAN PLATELET VOLUME 8.3 FL (7.4-10.4); MONOCYTES # (AUTO) 0.2 X10'3 (0-0.9); MONOCYTES % (AUTO) 6.7 % (2-12); NEUTROPHILS # (AUTO) 1.6 X10'3 (1.8-7.7); NEUTROPHILS % (AUTO) 66.7 % (42-75); PLATELET COUNT 184 X10'3 (140-440); RED BLOOD COUNT 4.07 X10'6 (4.20-5.60); RED CELL DISTRIBUTION WIDTH 21.9 % (11.5-14.5); WHITE BLOOD COUNT 2.3 X10'3 (4.5-11.0)
[2022-04-12 07:54] LABS: ALANINE AMINOTRANSFERASE 16 U/L (12-78); ALBUMIN 2.8 G/DL (3.4-5.0); ALBUMIN/GLOBULIN RATIO 0.8 (1.1-1.5); ALKALINE PHOSPHATASE 65 IU/L (46-116); ANION GAP 8 (8-16); ASPARTATE AMINO TRANSFERASE 27 U/L (10-37); BILIRUBIN,TOTAL 0.6 MG/DL (0.1-1.0); BLOOD UREA NITROGEN 11 MG/DL (7-18); CALCIUM 8.4 MG/DL (8.5-10.1); CHLORIDE 103 MMOL/L (99-107); CREATININE 0.58 MG/DL (0.40-0.90); GLUCOSE 131 MG/DL (70-104); MAGNESIUM 1.4 MG/DL (1.5-2.4); POTASSIUM 3.6 MMOL/L (3.5-5.1); SODIUM 143 MMOL/L (135-145); TOTAL CARBON DIOXIDE 31.8 MMOL/L (24-32); TOTAL PROTEIN 6.2 G/DL (6.4-8.2); eGFR > 90 ML/MIN
[2022-04-12] MEDS: sotalol 80mg tablet PO SCH ×2 (08:00→22:35)
[2022-04-12] MEDS: K and/or MAG REPLACEMENT MC SCH ×2 (08:00→20:00)
[2022-04-12] MEDS ORDERED: dexamethasone inj 6 MG in dextrose 5%-water 100 ML IV SCH (08:00)
[2022-04-12 09:43] LABS: ANISOCYTOSIS 3+; PLATELET ESTIMATE NORMAL; TOTAL CELLS COUNTED 100
[2022-04-12 09:51] LABS: POLYCHROMASIA FEW
[2022-04-12 09:52] LABS: POIKILOCYTOSIS 1+; SMUDGE CELLS FEW; STOMATOCYTES 1+
[2022-04-12] MEDS: dexamethasone 4mg/ml inj IV SCH ×2 (10:45→19:27)
[2022-04-12] MEDS: docusate sod 100mg capsule PO SCH ×2 (10:45→19:27)
[2022-04-12] MEDS: ondansetron/PF 4mg/2ml inj IV PRN ×2 (11:07→22:40)
[2022-04-12] MEDS: REMDESIVIR INJ 100 MG in normal saline 100ml IV soln 100 ML IV SCH (11:32)
[2022-04-12] MEDS: diltiazem-NS 100mg/100ml 100 ML IV SCH ×2 (13:59→19:29)
[2022-04-12] MEDS ORDERED: traMADol 50MG tablet PO ONE (14:30)
[2022-04-12] MEDS: pantoprazole 40MG/NS 100ML BAG 100 ML IV SCH (16:11)
--- NOTE | 2022-04-12 16:56 | NUR ---
Notified via text about patient max dose and current vitals. Awaiting response.
[2022-04-12] MEDS ORDERED: nitroGLYCERIN 0.4mg SUBLingual tab SL PRN (17:00)
[2022-04-12] MEDS ORDERED: rivaroxaban 20mg tablet PO SCH (18:00)
--- NOTE | 2022-04-12 18:30 | NUR ---
Pt received from Patrick Kiser RN. Pt is stable
[2022-04-12] MEDS: HYDROcodone/acetaminophen 10/325mg tab PO SCH (19:26)
[2022-04-12] MEDS: pantoprazole 40mg Tablet.DR PO SCH (19:27)
[2022-04-12] MEDS: ferrous sulfate 325mg tablet PO SCH ×2 (19:27→22:36)
[2022-04-12] MEDS ORDERED: ipratropium 0.5 MG/2.5ML nebule NEB SCH (21:00)
[2022-04-12] MEDS ORDERED: ipratropium/albuterol 3ml nebule IH SCH (21:00)
[2022-04-12] MEDS: rivaroxaban 20mg tablet PO SCH (22:36)
[2022-04-12] MEDS: gabapentin 400mg capsule PO SCH (22:36)
[2022-04-12] MEDS: traZODone 50mg tablet PO SCH (22:36)
[2022-04-12] MEDS: prednisoLONE acetate 1% ophth susp 5ml EACHEYE SCH (22:39)
[2022-04-13] MEDS: ALBUTEROL INHALER 1 PUFF/90 MCG INHALation IH SCH ×4 (02:28→21:58)
[2022-04-13 05:38] LABS: BASOPHILS # (AUTO) 0.1 X10'3 (0-0.2); BASOPHILS % (AUTO) 0.7 % (0-1); EOSINOPHILS % (AUTO) 0 % (0-6); HEMATOCRIT 36.5 % (35.0-45.0); HEMOGLOBIN 11.5 g/dl (12.0-16.0); MEAN CORPUSCULAR HEMOGLOBIN 25.4 PG (27.0-31.0); MEAN CORPUSCULAR HGB CONC 31.4 g/dL (33.0-36.5); MEAN PLATELET VOLUME 8.8 FL (7.4-10.4); MONOCYTES # (AUTO) 0.7 X10'3 (0-0.9); NEUTROPHILS # (AUTO) 6.8 X10'3 (1.8-7.7); NEUTROPHILS % (AUTO) 79.3 % (42-75); PLATELET COUNT 233 X10'3 (140-440); RED BLOOD COUNT 4.51 X10'6 (4.20-5.60); RED CELL DISTRIBUTION WIDTH 21.5 % (11.5-14.5); WHITE BLOOD COUNT 8.6 X10'3 (4.5-11.0)
[2022-04-13 05:44] LABS: ALANINE AMINOTRANSFERASE 23 U/L (12-78); ALBUMIN 2.9 G/DL (3.4-5.0); ALBUMIN/GLOBULIN RATIO 0.8 (1.1-1.5); ALKALINE PHOSPHATASE 66 IU/L (46-116); ANION GAP 4 (8-16); ASPARTATE AMINO TRANSFERASE 38 U/L (10-37); BILIRUBIN,TOTAL 0.6 MG/DL (0.1-1.0); BLOOD UREA NITROGEN 14 MG/DL (7-18); BUN/CREATININE RATIO 20.9 (6.6-38.0); CALCIUM 8.1 MG/DL (8.5-10.1); CHLORIDE 100 MMOL/L (99-107); CREATININE 0.67 MG/DL (0.40-0.90); GLUCOSE 114 MG/DL (70-104); MAGNESIUM 1.4 MG/DL (1.5-2.4); POTASSIUM 3.7 MMOL/L (3.5-5.1); SODIUM 138 MMOL/L (135-145); TOTAL CARBON DIOXIDE 33.8 MMOL/L (24-32); TOTAL PROTEIN 6.4 G/DL (6.4-8.2); eGFR 85 ML/MIN
[2022-04-13] MEDS: dexamethasone 4mg/ml inj IV SCH ×2 (07:29→20:23)
[2022-04-13] MEDS: diltiazem-NS 100mg/100ml 100 ML IV SCH ×3 (07:31→18:08)
[2022-04-13] MEDS: ezetimibe 10mg tablet PO SCH (07:31)
[2022-04-13] MEDS: pantoprazole 40MG/NS 100ML BAG 100 ML IV SCH (07:31)
[2022-04-13] MEDS: docusate sod 100mg capsule PO SCH ×2 (07:37→20:22)
[2022-04-13] MEDS: loperamide 2mg capsule PO SCH (07:38)
[2022-04-13] MEDS: gabapentin 400mg capsule PO SCH ×2 (07:38→21:45)
[2022-04-13] MEDS: cetirizine 10mg tablet PO SCH (07:38)
[2022-04-13] MEDS: atorvastatin 20mg tablet PO SCH (07:38)
[2022-04-13] MEDS: pantoprazole 40mg Tablet.DR PO SCH ×2 (07:43→20:22)
[2022-04-13] MEDS: ondansetron/PF 4mg/2ml inj IV PRN ×2 (07:45→15:40)
[2022-04-13] MEDS: sotalol 80mg tablet PO SCH ×4 (07:46→20:24)
[2022-04-13] MEDS: K and/or MAG REPLACEMENT MC SCH ×2 (08:00→19:56)
[2022-04-13] MEDS: HYDROcodone/acetaminophen 10/325mg tab PO SCH ×4 (08:00→20:23)
[2022-04-13] MEDS: FLUoxetine 20mg capsule PO SCH (08:00)
[2022-04-13] MEDS: REMDESIVIR INJ 100 MG in normal saline 100ml IV soln 100 ML IV SCH (08:18)
[2022-04-13] MEDS: prednisoLONE acetate 1% ophth susp 5ml EACHEYE SCH ×3 (08:19→20:23)
[2022-04-13] MEDS: celeCOXIB 100mg capsule PO SCH (08:27)
[2022-04-13] MEDS: mirabegron 25mg ER tablet PO SCH (08:28)
[2022-04-13 09:47] LABS: ABG BASE EXCESS 3.4 mmol/L (-2.0-2.0); ABG HCO3 28.3 mmol/L (22.0-26.0); ABG OXYGEN SATURATION 90.7 % (94-97); ABG PCO2 (T) 43.7 mmHg (32.0-45.0); ABG PO2 (T) 62.8 mmHg (75.0-100.0); ALLEN'S TEST POSITIVE; FCOHb 0.8 % (0.0-3.9); FMetHb 0.3 % (0.0-1.5); FO2Hb 89.7 % (94-97); PATIENT TEMPERATURE 36.8
[2022-04-13 10:02] LABS: ANISOCYTOSIS 3+; MICROCYTOSIS 1+; PLATELET ESTIMATE NORMAL; POIKILOCYTOSIS FEW
[2022-04-13] MEDS: rivaroxaban 20mg tablet PO SCH (18:06)
[2022-04-13] MEDS: normal saline 1000ml 1,000 ML IV SCH (20:15)
[2022-04-13] MEDS: ferrous sulfate 325mg tablet PO SCH (20:22)
--- NOTE | 2022-04-13 21:00 | NUR ---
Patient in room PCU 3019. I have received report from [facility] ED RN and had the opportunity to ask questions and assume patient care.
--- NOTE | 2022-04-13 21:15 | NUR ---
Pt arrived via gurney from ED in no acute distress. C/O generalized, chronic pain to joints and soft tissue. Also C/O nausea. Assisted to bed in private room for isolation due to infectious disease process on admission, very weak, unable to assist w/transfer. Pt oriented to room, surroundings, and POC. IV Cardizem infusing at 10mg/HR per order, HR 108/min., BP: 173/102, RR: 20/minute, afebrile. Rhonchi auscultated to bilat lungs and breath sounds decreased throughout. O2 on per NC@3L. Intermittent, moist cough noted, productive of greene, thick sputum. No SOB noted at this time. notified of elevated HR and BP. Pt. appears withdrawn and lethargic, stating she has felt this way f/several days at home accompanied by lack of food/fluid intake. WICK in place, no U/O noted. PO fluids offered and taken in small amounts.
[2022-04-13] MEDS: traZODone 50mg tablet PO SCH (21:45)
[2022-04-13 22:00] VITALS: BP_SYST 155; BP_SYST 175; BP_DIAS 102; BP_DIAS 89
[2022-04-14] VITALS (10 sets, daily range): BP systolic 109–169; BP diastolic 59–95
[2022-04-14] MEDS: ondansetron/PF 4mg/2ml inj IV PRN ×2 (00:18→11:06)
[2022-04-14] MEDS: HYDROcodone/acetaminophen 10/325mg tab PO SCH ×4 (01:57→21:29)
[2022-04-14] MEDS: ALBUTEROL INHALER 1 PUFF/90 MCG INHALation IH SCH ×4 (02:23→19:57)
--- NOTE | 2022-04-14 03:15 | NUR ---
MD notified of persistent elevated SBP in low 170s, high 160s. IV Cardizem rate ordered to be increased to 15mg/HR. Pt resting, noted to be sleeping interm. Routine PO pain medication admin as ordered f/good effect.
[2022-04-14] MEDS: diltiazem-NS 100mg/100ml 100 ML IV SCH ×2 (03:45→09:55)
--- NOTE | 2022-04-14 06:40 | NUR ---
Patient in room PCU 3019. I have received report from Malini NIEVES and had the opportunity to ask questions and assume patient care.
[2022-04-14] MEDS: normal saline 1000ml 1,000 ML IV SCH (06:44)
[2022-04-14 07:00] LABS: BASOPHILS % (AUTO) 0.1 % (0-1); EOSINOPHILS % (AUTO) 0 % (0-6); HEMATOCRIT 35.9 % (35.0-45.0); HEMOGLOBIN 11.2 g/dl (12.0-16.0); LYMPHOCYTES # (AUTO) 0.9 X10'3 (1.1-4.8); LYMPHOCYTES % (AUTO) 14.7 % (21-51); MEAN CORPUSCULAR HEMOGLOBIN 25.3 PG (27.0-31.0); MEAN CORPUSCULAR HGB CONC 31.2 g/dL (33.0-36.5); MEAN PLATELET VOLUME 8.6 FL (7.4-10.4); MONOCYTES # (AUTO) 0.6 X10'3 (0-0.9); MONOCYTES % (AUTO) 10.2 % (2-12); NEUTROPHILS # (AUTO) 4.4 X10'3 (1.8-7.7); PLATELET COUNT 210 X10'3 (140-440); RED BLOOD COUNT 4.43 X10'6 (4.20-5.60); RED CELL DISTRIBUTION WIDTH 22.1 % (11.5-14.5); WHITE BLOOD COUNT 5.9 X10'3 (4.5-11.0)
--- NOTE | 2022-04-14 07:00 | NUR ---
Problems reprioritized. Patient report given, questions answered & plan of care reviewed with Virgen NIEVES.
[2022-04-14 07:11] LABS: D-DIMER 0.31 MG/L FEU (0-0.50)
[2022-04-14 07:27] LABS: ALANINE AMINOTRANSFERASE 18 U/L (12-78); ALBUMIN 2.6 G/DL (3.4-5.0); ALBUMIN/GLOBULIN RATIO 0.8 (1.1-1.5); ALKALINE PHOSPHATASE 53 IU/L (46-116); ANION GAP 6 (8-16); ASPARTATE AMINO TRANSFERASE 29 U/L (10-37); BILIRUBIN,TOTAL 0.6 MG/DL (0.1-1.0); BLOOD UREA NITROGEN 19 MG/DL (7-18); BUN/CREATININE RATIO 27.5 (6.6-38.0); C-REACTIVE PROTEIN 0.92 MG/DL (0.0-0.5); CALCIUM 8.1 MG/DL (8.5-10.1); CHLORIDE 100 MMOL/L (99-107); CREATININE 0.69 MG/DL (0.40-0.90); GLUCOSE 122 MG/DL (70-104); MAGNESIUM 1.6 MG/DL (1.5-2.4); SODIUM 138 MMOL/L (135-145); TOTAL CARBON DIOXIDE 31.6 MMOL/L (24-32); TOTAL PROTEIN 5.7 G/DL (6.4-8.2); eGFR 82 ML/MIN
[2022-04-14 07:31] LABS: POTASSIUM 2.9 MMOL/L (3.5-5.1)
[2022-04-14 07:34] LABS: ANISOCYTOSIS 3+; MICROCYTOSIS 1+; PLATELET ESTIMATE NORMAL; POIKILOCYTOSIS FEW
[2022-04-14 07:35] LABS: ELLIPTOCYTES FEW
--- NOTE | 2022-04-14 07:51 | NUR ---
promotional table spacer Page Sent promotional table spacer PAGER ID: [phone] MESSAGE: [id number] PT has critical k of 2.9. I will replace per k/mag protocol. Virgen @[id number]
[2022-04-14] MEDS: K and/or MAG REPLACEMENT MC SCH ×2 (08:00→20:00)
[2022-04-14] MEDS: pantoprazole 40MG/NS 100ML BAG 100 ML IV SCH (08:00)
[2022-04-14] MEDS: loperamide 2mg capsule PO SCH ×2 (08:00→09:41)
[2022-04-14] MEDS: dexamethasone 4mg/ml inj IV SCH ×2 (09:40→21:28)
[2022-04-14] MEDS: prednisoLONE acetate 1% ophth susp 5ml EACHEYE SCH ×3 (09:40→21:31)
[2022-04-14] MEDS: REMDESIVIR INJ 100 MG in normal saline 100ml IV soln 100 ML IV SCH (09:40)
[2022-04-14] MEDS: diltiazem 30mg tablet PO SCH ×3 (09:41→21:28)
[2022-04-14] MEDS: cetirizine 10mg tablet PO SCH (09:41)
[2022-04-14] MEDS: atorvastatin 20mg tablet PO SCH (09:41)
[2022-04-14] MEDS: sotalol 80mg tablet PO SCH ×2 (09:41→21:30)
[2022-04-14] MEDS: mirabegron 25mg ER tablet PO SCH (09:42)
[2022-04-14] MEDS: gabapentin 400mg capsule PO SCH ×2 (09:42→21:28)
[2022-04-14] MEDS: POTASSIUM BICARB 20meq eff tab 20 MEQ TABLET.EFF PO PRN ×3 (09:43→21:32)
[2022-04-14] MEDS: ferrous sulfate 325mg tablet PO SCH ×2 (09:45→21:29)
[2022-04-14] MEDS: pantoprazole 40mg Tablet.DR PO SCH ×2 (09:45→21:29)
[2022-04-14] MEDS: ezetimibe 10mg tablet PO SCH (09:45)
[2022-04-14] MEDS: celeCOXIB 100mg capsule PO SCH (09:45)
[2022-04-14] MEDS: FLUoxetine 20mg capsule PO SCH (09:45)
[2022-04-14] MEDS: docusate sod 100mg capsule PO SCH ×2 (09:48→21:29)
[2022-04-14] MEDS: potassium CL 10mEq/100ml bag 100 ML IV PRN ×3 (11:07→14:33)
[2022-04-14] MEDS ORDERED: hydrALAZINE 20mg/ml inj. IV PRN (11:55)
--- NOTE | 2022-04-14 14:00 | NUR ---
Patient in room PCU 3019. I have received report from LIZBETH Celis and had the opportunity to ask questions and assume patient care.
--- NOTE | 2022-04-14 14:02 | NUR ---
Problems reprioritized. Patient report given, questions answered & plan of care reviewed with Jayleen RN.
[2022-04-14] MEDS ORDERED: bisacodyl 10mg suppository rectal RC PRN (14:30)
[2022-04-14] MEDS ORDERED: proCHLORperazine 10 MG/2 ml inj IV PRN (14:35)
[2022-04-14] MEDS: rivaroxaban 20mg tablet PO SCH (17:50)
--- NOTE | 2022-04-14 18:40 | NUR ---
Problems reprioritized. Patient report given, questions answered & plan of care reviewed with LIZBETH Patrick.
--- NOTE | 2022-04-14 21:04 | NUR ---
PAGER ID: [phone] MESSAGE: Pt RM [id number] Shameka Nguyễn is it ok to have electroyte replacement renewed. She fell off the protocol today. Celina [id number]
[2022-04-14] MEDS ORDERED: magnesium Cl slow-release 64mg tablet PO PRN (21:10)
[2022-04-14] MEDS ORDERED: magnesium 2GM in 50ml NS 50 ML IV PRN (21:10)
[2022-04-14] MEDS ORDERED: POTASSIUM BICARB 20meq eff tab 20 MEQ TABLET.EFF PO PRN (21:10)
[2022-04-14] MEDS ORDERED: magnesium 4gm in 100ml NS 100 ML IV PRN (21:10)
[2022-04-14] MEDS ORDERED: potassium CL 10mEq/100ml bag 100 ML IV PRN (21:10)
[2022-04-14] MEDS: traZODone 50mg tablet PO SCH (21:29)
[2022-04-14 22:09] LABS: MAGNESIUM 1.5 MG/DL (1.5-2.4); POTASSIUM 3.7 MMOL/L (3.5-5.1)
[2022-04-15] VITALS (7 sets, daily range): BP systolic 128–147; BP diastolic 64–81
[2022-04-15] MEDS: POTASSIUM BICARB 20meq eff tab 20 MEQ TABLET.EFF PO PRN (02:34)
[2022-04-15] MEDS: ALBUTEROL INHALER 1 PUFF/90 MCG INHALation IH SCH ×4 (02:41→20:14)
[2022-04-15] MEDS: HYDROcodone/acetaminophen 10/325mg tab PO SCH ×4 (02:59→19:55)
[2022-04-15] MEDS: normal saline 1000ml 1,000 ML IV SCH ×2 (03:00→20:15)
[2022-04-15] MEDS: diltiazem 30mg tablet PO SCH ×4 (03:00→19:21)
--- NOTE | 2022-04-15 03:35 | NUR ---
Pt bladder scanned has over 1172 ml in bladder. Spoke with Dr. Wang and she ordered a asencio cath to be placed.
[2022-04-15] MEDS ORDERED: LIDOcaine 2% 10ml TOPICAL JELLY (Urojet) TP ONE (03:40)
--- NOTE | 2022-04-15 04:33 | NUR ---
Pt tolerated asencio procedure well. 10ml saline in balloon and over 1200 ml urine out in asencio.
--- NOTE | 2022-04-15 06:15 | NUR ---
Patient in room PCU 3019. I have received report from Celina NIEVES and had the opportunity to ask questions and assume patient care.
--- NOTE | 2022-04-15 06:18 | NUR ---
Problems reprioritized. Patient report given, questions answered & plan of care reviewed with LIZBETH Griffin.
[2022-04-15 06:25] LABS: BASOPHILS % (AUTO) 0.1 % (0-1); EOSINOPHILS % (AUTO) 0 % (0-6); HEMATOCRIT 35.3 % (35.0-45.0); HEMOGLOBIN 11.2 g/dl (12.0-16.0); LYMPHOCYTES # (AUTO) 0.8 X10'3 (1.1-4.8); LYMPHOCYTES % (AUTO) 12.5 % (21-51); MEAN CORPUSCULAR HEMOGLOBIN 25.6 PG (27.0-31.0); MEAN CORPUSCULAR HGB CONC 31.7 g/dL (33.0-36.5); MEAN CORPUSCULAR VOLUME 80.7 FL (78-98); MEAN PLATELET VOLUME 8.8 FL (7.4-10.4); MONOCYTES # (AUTO) 0.5 X10'3 (0-0.9); MONOCYTES % (AUTO) 7.9 % (2-12); NEUTROPHILS # (AUTO) 4.9 X10'3 (1.8-7.7); NEUTROPHILS % (AUTO) 79.5 % (42-75); PLATELET COUNT 198 X10'3 (140-440); RED BLOOD COUNT 4.38 X10'6 (4.20-5.60); RED CELL DISTRIBUTION WIDTH 22.3 % (11.5-14.5); WHITE BLOOD COUNT 6.2 X10'3 (4.5-11.0)
[2022-04-15 06:33] LABS: D-DIMER 0.34 MG/L FEU (0-0.50)
[2022-04-15 06:41] LABS: ALANINE AMINOTRANSFERASE 19 U/L (12-78); ALBUMIN 2.3 G/DL (3.4-5.0); ALBUMIN/GLOBULIN RATIO 0.8 (1.1-1.5); ALKALINE PHOSPHATASE 48 IU/L (46-116); ANION GAP 5 (8-16); ASPARTATE AMINO TRANSFERASE 25 U/L (10-37); BILIRUBIN,TOTAL 0.6 MG/DL (0.1-1.0); BLOOD UREA NITROGEN 20 MG/DL (7-18); BUN/CREATININE RATIO 32.3 (6.6-38.0); C-REACTIVE PROTEIN 0.51 MG/DL (0.0-0.5); CHLORIDE 102 MMOL/L (99-107); CREATININE 0.62 MG/DL (0.40-0.90); GLUCOSE 130 MG/DL (70-104); MAGNESIUM 1.5 MG/DL (1.5-2.4); POTASSIUM 3.7 MMOL/L (3.5-5.1); SODIUM 140 MMOL/L (135-145); TOTAL CARBON DIOXIDE 32.8 MMOL/L (24-32); TOTAL PROTEIN 5.3 G/DL (6.4-8.2); eGFR > 90 ML/MIN
[2022-04-15] MEDS: K and/or MAG REPLACEMENT MC SCH ×2 (07:07→19:22)
[2022-04-15] MEDS ORDERED: K and/or MAG REPLACEMENT MC SCH (08:00)
[2022-04-15] MEDS: loperamide 2mg capsule PO SCH (08:00)
[2022-04-15] MEDS: gabapentin 400mg capsule PO SCH ×2 (08:56→19:20)
[2022-04-15] MEDS: dexamethasone 4mg/ml inj IV SCH ×2 (08:56→19:21)
[2022-04-15] MEDS: prednisoLONE acetate 1% ophth susp 5ml EACHEYE SCH ×3 (08:56→22:14)
[2022-04-15] MEDS: REMDESIVIR INJ 100 MG in normal saline 100ml IV soln 100 ML IV SCH (08:56)
[2022-04-15] MEDS: FLUoxetine 20mg capsule PO SCH (08:57)
[2022-04-15] MEDS: mirabegron 25mg ER tablet PO SCH (08:57)
[2022-04-15] MEDS: docusate sod 100mg capsule PO SCH ×2 (08:57→19:20)
[2022-04-15] MEDS: pantoprazole 40mg Tablet.DR PO SCH ×2 (08:57→19:21)
[2022-04-15] MEDS: celeCOXIB 100mg capsule PO SCH (08:57)
[2022-04-15] MEDS: ferrous sulfate 325mg tablet PO SCH ×2 (08:57→19:20)
[2022-04-15] MEDS: cetirizine 10mg tablet PO SCH (08:57)
[2022-04-15] MEDS: sotalol 80mg tablet PO SCH ×2 (08:57→19:21)
[2022-04-15] MEDS: ezetimibe 10mg tablet PO SCH (08:57)
[2022-04-15] MEDS: atorvastatin 20mg tablet PO SCH (08:57)
--- NOTE | 2022-04-15 14:54 | NUR ---
Skin tear to left elbow. Opti foam was present upon my assessment. I removed dressing to observe wound. Wound is a skin tear, with minimal bloody drainage. New opti foam applied - date and initials marked.
[2022-04-15] MEDS ORDERED: ondansetron 4mg rapidly disintigrating tab PO PRN (17:30)
[2022-04-15] MEDS: rivaroxaban 20mg tablet PO SCH (19:20)
--- NOTE | 2022-04-15 20:27 | NUR ---
Pt complaining of 6\\10 jaw pain "ache" 2/10 chest pain light pressure called Dr. Wang so I could bring her the EKG. She said she would like stat troponin. Wants to be called back after the stat troponin is back " more important than the EKG". Also ordered nitro paste left chest wall 1 inch Q6h.
[2022-04-15] MEDS ORDERED: nitroGLYCERIN 1gm ointment UD TP PRN (20:35)
--- NOTE | 2022-04-15 21:48 | NUR ---
Called Dr Wang to let her know that the stat troponin came back and was 12. She said to do a repeat draw in 4 hours. No other new orders at this time.
[2022-04-15] MEDS: traZODone 50mg tablet PO SCH (22:11)
[2022-04-16] MEDS: HYDROcodone/acetaminophen 10/325mg tab PO SCH ×4 (01:10→20:01)
[2022-04-16] MEDS: diltiazem 30mg tablet PO SCH ×4 (01:10→19:58)
[2022-04-16] MEDS: normal saline 1000ml 1,000 ML IV SCH (01:12)
[2022-04-16 01:32] LABS: BASOPHILS % (AUTO) 0.2 % (0-1); EOSINOPHILS % (AUTO) 0 % (0-6); HEMATOCRIT 36.8 % (35.0-45.0); HEMOGLOBIN 11.6 g/dl (12.0-16.0); LYMPHOCYTES # (AUTO) 0.8 X10'3 (1.1-4.8); LYMPHOCYTES % (AUTO) 11.4 % (21-51); MEAN CORPUSCULAR HEMOGLOBIN 25.3 PG (27.0-31.0); MEAN CORPUSCULAR HGB CONC 31.5 g/dL (33.0-36.5); MEAN CORPUSCULAR VOLUME 80.4 FL (78-98); MEAN PLATELET VOLUME 8.6 FL (7.4-10.4); MONOCYTES # (AUTO) 0.5 X10'3 (0-0.9); MONOCYTES % (AUTO) 7.1 % (2-12); NEUTROPHILS # (AUTO) 5.5 X10'3 (1.8-7.7); NEUTROPHILS % (AUTO) 81.3 % (42-75); PLATELET COUNT 184 X10'3 (140-440); RED BLOOD COUNT 4.58 X10'6 (4.20-5.60); RED CELL DISTRIBUTION WIDTH 21.6 % (11.5-14.5); WHITE BLOOD COUNT 6.8 X10'3 (4.5-11.0)
[2022-04-16 01:47] LABS: PLATELET ESTIMATE NORMAL
[2022-04-16 01:49] LABS: ALANINE AMINOTRANSFERASE 18 U/L (12-78); ALBUMIN 2.3 G/DL (3.4-5.0); ALBUMIN/GLOBULIN RATIO 0.7 (1.1-1.5); ALKALINE PHOSPHATASE 51 IU/L (46-116); ANION GAP 0 (8-16); ASPARTATE AMINO TRANSFERASE 24 U/L (10-37); BILIRUBIN,TOTAL 0.6 MG/DL (0.1-1.0); BLOOD UREA NITROGEN 26 MG/DL (7-18); BUN/CREATININE RATIO 31.3 (6.6-38.0); CHLORIDE 103 MMOL/L (99-107); CREATININE 0.83 MG/DL (0.40-0.90); GLUCOSE 149 MG/DL (70-104); POTASSIUM 3.5 MMOL/L (3.5-5.1); SODIUM 136 MMOL/L (135-145); TARGET CELLS 1+; TOTAL CARBON DIOXIDE 33.4 MMOL/L (24-32); TOTAL PROTEIN 5.5 G/DL (6.4-8.2); eGFR 67 ML/MIN
[2022-04-16 01:50] LABS: ELLIPTOCYTES 2+; HYPOCHROMASIA 1+; SCHISTOCYTES FEW
[2022-04-16 01:51] LABS: ANISOCYTOSIS 3+
[2022-04-16 01:52] LABS: C-REACTIVE PROTEIN 1.18 MG/DL (0.0-0.5)
[2022-04-16 01:54] LABS: D-DIMER 0.35 MG/L FEU (0-0.50)
[2022-04-16] MEDS: ALBUTEROL INHALER 1 PUFF/90 MCG INHALation IH SCH ×4 (03:45→20:09)
--- NOTE | 2022-04-16 06:35 | NUR ---
Patient in room PCU 3019. I have received report from Celina NIEVES and had the opportunity to ask questions and assume patient care.
--- NOTE | 2022-04-16 06:40 | NUR ---
Problems reprioritized. Patient report given, questions answered & plan of care reviewed with LIZBETH Griffin.
[2022-04-16 07:00] VITALS: BP 131/77
[2022-04-16] MEDS: loperamide 2mg capsule PO SCH (07:19)
[2022-04-16] MEDS: K and/or MAG REPLACEMENT MC SCH ×2 (08:00→18:37)
[2022-04-16] MEDS: atorvastatin 20mg tablet PO SCH (08:26)
[2022-04-16] MEDS: cetirizine 10mg tablet PO SCH (08:27)
[2022-04-16] MEDS: FLUoxetine 20mg capsule PO SCH (08:27)
[2022-04-16] MEDS: gabapentin 400mg capsule PO SCH ×2 (08:27→19:59)
[2022-04-16] MEDS: mirabegron 25mg ER tablet PO SCH (08:27)
[2022-04-16] MEDS: pantoprazole 40mg Tablet.DR PO SCH ×2 (08:27→19:59)
[2022-04-16] MEDS: ferrous sulfate 325mg tablet PO SCH ×2 (08:27→19:59)
[2022-04-16] MEDS: celeCOXIB 100mg capsule PO SCH (08:28)
[2022-04-16] MEDS: dexamethasone 4mg/ml inj IV SCH ×2 (08:28→19:52)
[2022-04-16] MEDS: ezetimibe 10mg tablet PO SCH (08:28)
[2022-04-16] MEDS: sotalol 80mg tablet PO SCH ×2 (08:28→19:58)
[2022-04-16] MEDS: docusate sod 100mg capsule PO SCH ×2 (08:28→20:00)
[2022-04-16] MEDS: prednisoLONE acetate 1% ophth susp 5ml EACHEYE SCH ×3 (08:35→20:29)
[2022-04-16 08:49] LABS: MAGNESIUM 1.8 MG/DL (1.5-2.4)
--- NOTE | 2022-04-16 09:33 | NUR ---
Initial: Pt admitted w/ Covid, Afib, and COPD exacerbation per EMR. Currently on MM5 diet w/ low PO intake, avg 23% of meals not meeting needs. Pt apparently has dentures at home. Recommend BSS w/ DISPLAY DECORATOR to determine most appropriate texture modification. Also recommend Ensure Enlive TID to assist w/ meeting needs. Documented to be on 4L NC, LBM 7 receiving routine colace. Consider adding additional bowel care if MD agreeable. Will continue to monitor. Recs; 1. Continue Regular diet, BSS w/ DISPLAY DECORATOR to determine appropriate texture 2. Ensure Enlive TID; pending MD verification 3. Routine bowel care 4. Scaled wts Addendum: 04/16/22 at [address] Amended: Links added.
--- NOTE | 2022-04-16 10:00 | NUR ---
Patient received sponge bath this morning via myself and 2 floor aids (Tono and Kristine) Washed from the neck down with warm soap and water, dried and then lotion was applied. Skin is intact and no areas of concern noted. Brushed and washed patients hair. Bre care done. Tele stickers replaced. Full bed change done as well as gown. Patient is very sweet and was so greatful!
[2022-04-16 11:00] VITALS: BP 156/82
[2022-04-16] MEDS ORDERED: lactose-reduced food (Ensure Enlive) - 237ml bottle PO SCH (13:00)
[2022-04-16] MEDS: magnesium hydroxide 30ml (MOM) UD suspension PO PRN (13:51)
[2022-04-16 15:00] VITALS: BP 143/80
--- NOTE | 2022-04-16 15:16 | NUR ---
Patient has requested that her meds be crushed and mixed with pudding or applesauce. I let her know that some meds are not able to be crushed, but otherwise it shouldn't be an issue. She has a large amount of pills in AM and PM and has a hard time swallowing them all.
[2022-04-16 18:00] VITALS: BP 137/73
[2022-04-16 19:50] VITALS: BP 144/81
[2022-04-16] MEDS: rivaroxaban 20mg tablet PO SCH (19:57)
[2022-04-16] MEDS: traZODone 50mg tablet PO SCH (19:59)
[2022-04-16 22:00] VITALS: BP 130/69
[2022-04-17] VITALS (7 sets, daily range): BP systolic 140–181; BP diastolic 60–86
[2022-04-17] MEDS: diltiazem 30mg tablet PO SCH ×4 (01:28→22:03)
[2022-04-17] MEDS: HYDROcodone/acetaminophen 10/325mg tab PO SCH ×4 (01:29→22:09)
[2022-04-17] MEDS: normal saline 1000ml 1,000 ML IV SCH (01:29)
[2022-04-17] MEDS: ALBUTEROL INHALER 1 PUFF/90 MCG INHALation IH SCH ×3 (03:11→21:09)
[2022-04-17 06:14] LABS: D-DIMER 0.37 MG/L FEU (0-0.50)
--- NOTE | 2022-04-17 06:37 | NUR ---
Problems reprioritized. Patient report given, questions answered & plan of care reviewed with LIZBETH Griffin.
[2022-04-17] MEDS: loperamide 2mg capsule PO SCH (07:23)
[2022-04-17 07:39] LABS: BASOPHILS % (AUTO) 0.3 % (0-1); EOSINOPHILS % (AUTO) 0 % (0-6); HEMATOCRIT 37.4 % (35.0-45.0); HEMOGLOBIN 11.7 g/dl (12.0-16.0); LYMPHOCYTES # (AUTO) 0.7 X10'3 (1.1-4.8); LYMPHOCYTES % (AUTO) 9.4 % (21-51); MEAN CORPUSCULAR HEMOGLOBIN 25.4 PG (27.0-31.0); MEAN CORPUSCULAR HGB CONC 31.4 g/dL (33.0-36.5); MEAN CORPUSCULAR VOLUME 80.7 FL (78-98); MEAN PLATELET VOLUME 8.3 FL (7.4-10.4); MONOCYTES # (AUTO) 0.5 X10'3 (0-0.9); MONOCYTES % (AUTO) 6.7 % (2-12); NEUTROPHILS # (AUTO) 6.4 X10'3 (1.8-7.7); NEUTROPHILS % (AUTO) 83.6 % (42-75); PLATELET COUNT 194 X10'3 (140-440); RED BLOOD COUNT 4.63 X10'6 (4.20-5.60); RED CELL DISTRIBUTION WIDTH 21.6 % (11.5-14.5); WHITE BLOOD COUNT 7.7 X10'3 (4.5-11.0)
[2022-04-17 07:50] LABS: ALANINE AMINOTRANSFERASE 26 U/L (12-78); ALBUMIN 2.3 G/DL (3.4-5.0); ALBUMIN/GLOBULIN RATIO 0.7 (1.1-1.5); ALKALINE PHOSPHATASE 52 IU/L (46-116); ANION GAP 5 (8-16); ASPARTATE AMINO TRANSFERASE 24 U/L (10-37); BILIRUBIN,TOTAL 0.5 MG/DL (0.1-1.0); BLOOD UREA NITROGEN 25 MG/DL (7-18); BUN/CREATININE RATIO 31.6 (6.6-38.0); CALCIUM 8.2 MG/DL (8.5-10.1); CHLORIDE 104 MMOL/L (99-107); CREATININE 0.79 MG/DL (0.40-0.90); GLUCOSE 142 MG/DL (70-104); POTASSIUM 4.2 MMOL/L (3.5-5.1); SODIUM 142 MMOL/L (135-145); TOTAL CARBON DIOXIDE 33.3 MMOL/L (24-32); TOTAL PROTEIN 5.6 G/DL (6.4-8.2); eGFR 71 ML/MIN
[2022-04-17] MEDS: K and/or MAG REPLACEMENT MC SCH ×2 (08:00→20:00)
[2022-04-17] MEDS: prednisoLONE acetate 1% ophth susp 5ml EACHEYE SCH ×3 (08:20→21:00)
[2022-04-17] MEDS: FLUoxetine 20mg capsule PO SCH (08:20)
[2022-04-17] MEDS: mirabegron 25mg ER tablet PO SCH (08:20)
[2022-04-17] MEDS: sotalol 80mg tablet PO SCH ×2 (08:21→22:03)
[2022-04-17] MEDS: gabapentin 400mg capsule PO SCH ×2 (08:21→22:04)
[2022-04-17] MEDS: atorvastatin 20mg tablet PO SCH (08:21)
[2022-04-17] MEDS: celeCOXIB 100mg capsule PO SCH (08:21)
[2022-04-17] MEDS: ferrous sulfate 325mg tablet PO SCH ×2 (08:21→20:00)
[2022-04-17] MEDS: docusate sod 100mg capsule PO SCH ×2 (08:21→22:03)
[2022-04-17] MEDS: dexamethasone 4mg/ml inj IV SCH ×2 (08:21→22:02)
[2022-04-17] MEDS: ezetimibe 10mg tablet PO SCH (08:21)
[2022-04-17] MEDS: pantoprazole 40mg Tablet.DR PO SCH ×2 (08:21→22:03)
[2022-04-17] MEDS: cetirizine 10mg tablet PO SCH (08:21)
--- NOTE | 2022-04-17 11:29 | NUR ---
PAGER ID: [phone] MESSAGE: [phone] Shameka Nguyễn: Patient has not had BM since 04/10. Getting daily Colace and had milk of mag with no change. [facility] [id number]
--- NOTE | 2022-04-17 16:30 | NUR ---
Patient had been complaining of a burning sensation in her bladder starting 04/16. Catheter was not draining to gravity very well, unless repositioned often, and was backing up. I assumed it was an issue with the bag, and notified night nurse. She reported the same issue. I talked to the patient about removing the Asencio since there was talk about her possibly being discharged, but she stated she was having retention issues at home as well, and would like to keep the catheter for now. Patient continued to complain about a burning sensation today, so i let her know i may need to remove the catheter and place a new one. She agreed this seemed like the best solution. Urine at this point was very dark yellow, thick, and slimey. Upon removal, tip of asencio was clogged with mucous and it was clear why it wasnt draining properly. Patient cleaned for new asencio insert, and asencio was placed easily and without issues. Immediate urine drainage upon insertion. 10cc saline inserted into balloon. Patient stated she experienced no pain and that the catheter was comfortable. Draining to gravity without issue. Because of the appearance of her urine, i ordered a urine culture to check for UTI. Pending results
[2022-04-17 17:43] LABS: CLARITY,URINE CLOUDY (Clear); GLUCOSE, URINE NEGATIVE (Neg); KETONES,URINE NEGATIVE (Neg); LEUKOCYTE ESTERASE ,URINE LARGE (Neg); NITRITES, URINE NEGATIVE (Neg); OCCULT BLOOD,URINE LARGE (Neg); PROTEIN,URINE 30 mg/dl (Neg)
[2022-04-17 17:55] LABS: COLOR,URINE AMBER (Yellow); UA COLLECTION TYPE NON-SPECIFIED
[2022-04-17 18:01] LABS: BACTERIA,URINE 2+ /HPF (Neg); HYALINE CASTS 0-3 /LPF (NEGATIVE); RBC,URINE 20-50 /HPF (0-2); SQUAMOUS EPITHELIAL CELL,UR FEW /LPF (FEW); WBC,URINE TNTC /HPF (0-4)
[2022-04-17] MEDS: rivaroxaban 20mg tablet PO SCH (22:03)
[2022-04-17] MEDS: traZODone 50mg tablet PO SCH (22:03)
[2022-04-17] MEDS: magnesium hydroxide 30ml (MOM) UD suspension PO PRN (22:03)
[2022-04-18] MEDS: ALBUTEROL INHALER 1 PUFF/90 MCG INHALation IH SCH ×4 (03:06→20:48)
[2022-04-18] MEDS: diltiazem 30mg tablet PO SCH ×4 (03:10→22:27)
[2022-04-18] MEDS: HYDROcodone/acetaminophen 10/325mg tab PO SCH ×4 (03:21→22:33)
--- NOTE | 2022-04-18 06:48 | NUR ---
Problems reprioritized. Patient report given, questions answered & plan of care reviewed with FRANCHESKA. Addendum: 04/18/22 at 0648 by German Guan RN Amended: Links added.
[2022-04-18 06:50] LABS: BASOPHILS % (AUTO) 0.1 % (0-1); EOSINOPHILS % (AUTO) 0 % (0-6); HEMOGLOBIN 11.4 g/dl (12.0-16.0); LYMPHOCYTES # (AUTO) 0.5 X10'3 (1.1-4.8); MEAN CORPUSCULAR HEMOGLOBIN 25.3 PG (27.0-31.0); MEAN CORPUSCULAR HGB CONC 31.6 g/dL (33.0-36.5); MEAN CORPUSCULAR VOLUME 80.2 FL (78-98); MEAN PLATELET VOLUME 8.8 FL (7.4-10.4); MONOCYTES # (AUTO) 0.4 X10'3 (0-0.9); NEUTROPHILS # (AUTO) 5.9 X10'3 (1.8-7.7); NEUTROPHILS % (AUTO) 85.9 % (42-75); PLATELET COUNT 185 X10'3 (140-440); RED BLOOD COUNT 4.49 X10'6 (4.20-5.60); RED CELL DISTRIBUTION WIDTH 21.6 % (11.5-14.5); WHITE BLOOD COUNT 6.8 X10'3 (4.5-11.0)
[2022-04-18 07:00] LABS: D-DIMER 0.63 MG/L FEU (0-0.50)
[2022-04-18 07:10] LABS: ALANINE AMINOTRANSFERASE 22 U/L (12-78); ALBUMIN 2.2 G/DL (3.4-5.0); ALBUMIN/GLOBULIN RATIO 0.7 (1.1-1.5); ALKALINE PHOSPHATASE 52 IU/L (46-116); ANION GAP 6 (8-16); ASPARTATE AMINO TRANSFERASE 24 U/L (10-37); BILIRUBIN,TOTAL 0.5 MG/DL (0.1-1.0); BLOOD UREA NITROGEN 24 MG/DL (7-18); BUN/CREATININE RATIO 39.3 (6.6-38.0); C-REACTIVE PROTEIN 0.22 MG/DL (0.0-0.5); CHLORIDE 106 MMOL/L (99-107); CREATININE 0.61 MG/DL (0.40-0.90); GLUCOSE 146 MG/DL (70-104); LACTATE DEHYDROGENASE 252 U/L (81-234); MAGNESIUM 1.9 MG/DL (1.5-2.4); PHOSPHORUS 3.2 MG/DL (2.3-4.5); POTASSIUM 4.3 MMOL/L (3.5-5.1); SODIUM 142 MMOL/L (135-145); TOTAL CARBON DIOXIDE 30.1 MMOL/L (24-32); TOTAL PROTEIN 5.2 G/DL (6.4-8.2); eGFR > 90 ML/MIN
[2022-04-18 08:00] VITALS: BP 156/76
[2022-04-18] MEDS: loperamide 2mg capsule PO SCH (08:00)
[2022-04-18] MEDS: K and/or MAG REPLACEMENT MC SCH ×2 (08:00→20:00)
[2022-04-18] MEDS: prednisoLONE acetate 1% ophth susp 5ml EACHEYE SCH ×3 (08:00→22:46)
[2022-04-18] MEDS: ezetimibe 10mg tablet PO SCH (08:39)
[2022-04-18] MEDS: mirabegron 25mg ER tablet PO SCH (08:40)
[2022-04-18] MEDS: pantoprazole 40mg Tablet.DR PO SCH ×2 (08:40→22:34)
[2022-04-18] MEDS: docusate sod 100mg capsule PO SCH ×2 (08:40→22:31)
[2022-04-18] MEDS: ferrous sulfate 325mg tablet PO SCH ×2 (08:40→22:32)
[2022-04-18] MEDS: celeCOXIB 100mg capsule PO SCH (08:40)
[2022-04-18] MEDS: atorvastatin 20mg tablet PO SCH (08:40)
[2022-04-18] MEDS: gabapentin 400mg capsule PO SCH ×2 (08:40→22:31)
[2022-04-18] MEDS: FLUoxetine 20mg capsule PO SCH (08:40)
[2022-04-18] MEDS: dexamethasone 4mg/ml inj IV SCH ×2 (08:40→22:24)
[2022-04-18] MEDS: cetirizine 10mg tablet PO SCH (08:40)
[2022-04-18] MEDS: sotalol 80mg tablet PO SCH ×2 (08:40→22:30)
--- NOTE | 2022-04-18 10:38 | NUR ---
Reassessment: Pt s/p BSS with ST recs to continue MM5 diet with thin liquids as pt has difficulty chewing d/t lack of teeth and dentures are at home. PO intake appears to be improving, documented with average 55% PO intake since last RD assessment (04/16), up from average 23% PO intake, however pt documented with 100% PO intake at breakfast this morning. ONS still pending physician approval in EMR though may no longer be indicated if PO intake continues to improve. LBM 04/10. Pt receiving routine Colace and received PRN MoM 04/16 and 04/17 per EMR. D/w dietary to send prune juice and power pudding with next meal to further assist with bowel regularity. Will continue to follow and monitor need for further nutrition intervention. Recommendations: 1. Continue MM5 diet with thin liquids per ST recs 2. Ensure Enlive TID; pending MD verification; may not be indicated if PO intake continues to improve 3. Routine bowel care; continue to utilize PRN bowel care given constipation 4. Scaled wt this admit; subsequent weekly scaled weights Addendum: 04/18/22 at [address] Amended: Links added.
[2022-04-18 11:39] VITALS: BP 117/65
[2022-04-18 15:00] VITALS: BP 149/91
[2022-04-18 18:00] VITALS: BP 158/70
[2022-04-18] MEDS: rivaroxaban 20mg tablet PO SCH (18:02)
--- NOTE | 2022-04-18 18:46 | NUR ---
Problems reprioritized. Patient report given, questions answered & plan of care reviewed with LIZBETH William. Addendum: 04/18/22 at 1847 by Beverly Gibbs RN wrong patient, please disregard this note.
--- NOTE | 2022-04-18 18:47 | NUR ---
Problems reprioritized. Patient report given, questions answered & plan of care reviewed with LIZBETH Washington.
[2022-04-18 22:00] VITALS: BP 153/90
[2022-04-18] MEDS: traZODone 50mg tablet PO SCH (22:34)
[2022-04-18] MEDS: normal saline 1000ml 1,000 ML IV SCH (22:45)
[2022-04-19 02:00] VITALS: BP 155/71
[2022-04-19] MEDS: diltiazem 30mg tablet PO SCH ×4 (02:27→19:27)
[2022-04-19] MEDS: HYDROcodone/acetaminophen 10/325mg tab PO SCH ×4 (02:28→19:29)
[2022-04-19] MEDS: ALBUTEROL INHALER 1 PUFF/90 MCG INHALation IH SCH ×4 (02:34→20:37)
[2022-04-19 06:50] LABS: RED CELL DISTRIBUTION WIDTH 21.2 % (11.5-14.5)
[2022-04-19 06:54] LABS: BASOPHILS % (AUTO) 0 % (0-1); EOSINOPHILS % (AUTO) 0 % (0-6); HEMATOCRIT 36.5 % (35.0-45.0); HEMOGLOBIN 11.7 g/dl (12.0-16.0); LYMPHOCYTES # (AUTO) 0.6 X10'3 (1.1-4.8); LYMPHOCYTES % (AUTO) 6.7 % (21-51); MEAN CORPUSCULAR HEMOGLOBIN 25.8 PG (27.0-31.0); MEAN CORPUSCULAR VOLUME 80.7 FL (78-98); MEAN PLATELET VOLUME 8.4 FL (7.4-10.4); MONOCYTES # (AUTO) 0.5 X10'3 (0-0.9); MONOCYTES % (AUTO) 5.6 % (2-12); NEUTROPHILS # (AUTO) 7.6 X10'3 (1.8-7.7); NEUTROPHILS % (AUTO) 87.7 % (42-75); PLATELET COUNT 217 X10'3 (140-440); RED BLOOD COUNT 4.52 X10'6 (4.20-5.60); WHITE BLOOD COUNT 8.7 X10'3 (4.5-11.0)
[2022-04-19 06:56] LABS: D-DIMER 0.48 MG/L FEU (0-0.50)
[2022-04-19 07:15] LABS: ALANINE AMINOTRANSFERASE 22 U/L (12-78); ALBUMIN 2.4 G/DL (3.4-5.0); ALBUMIN/GLOBULIN RATIO 0.8 (1.1-1.5); ALKALINE PHOSPHATASE 58 IU/L (46-116); ANION GAP 5 (8-16); ASPARTATE AMINO TRANSFERASE 21 U/L (10-37); BILIRUBIN,TOTAL 0.5 MG/DL (0.1-1.0); BLOOD UREA NITROGEN 25 MG/DL (7-18); BUN/CREATININE RATIO 33.8 (6.6-38.0); C-REACTIVE PROTEIN 0.06 MG/DL (0.0-0.5); CALCIUM 8.1 MG/DL (8.5-10.1); CHLORIDE 106 MMOL/L (99-107); CREATININE 0.74 MG/DL (0.40-0.90); GLUCOSE 166 MG/DL (70-104); LACTATE DEHYDROGENASE 236 U/L (81-234); MAGNESIUM 1.9 MG/DL (1.5-2.4); PHOSPHORUS 3.2 MG/DL (2.3-4.5); POTASSIUM 4.6 MMOL/L (3.5-5.1); SODIUM 143 MMOL/L (135-145); TOTAL CARBON DIOXIDE 31.8 MMOL/L (24-32); TOTAL PROTEIN 5.4 G/DL (6.4-8.2); eGFR 76 ML/MIN
[2022-04-19 08:00] VITALS: BP 138/72
[2022-04-19] MEDS: K and/or MAG REPLACEMENT MC SCH ×2 (08:00→19:54)
[2022-04-19] MEDS: loperamide 2mg capsule PO SCH (08:00)
[2022-04-19] MEDS: mirabegron 25mg ER tablet PO SCH (08:01)
[2022-04-19] MEDS: atorvastatin 20mg tablet PO SCH (08:01)
[2022-04-19] MEDS: FLUoxetine 20mg capsule PO SCH (08:02)
[2022-04-19] MEDS: celeCOXIB 100mg capsule PO SCH (08:02)
[2022-04-19] MEDS: ferrous sulfate 325mg tablet PO SCH ×2 (08:02→19:28)
[2022-04-19] MEDS: sotalol 80mg tablet PO SCH ×2 (08:02→19:28)
[2022-04-19] MEDS: ezetimibe 10mg tablet PO SCH (08:02)
[2022-04-19] MEDS: cetirizine 10mg tablet PO SCH (08:02)
[2022-04-19] MEDS: magnesium hydroxide 30ml (MOM) UD suspension PO PRN (08:02)
[2022-04-19] MEDS: docusate sod 100mg capsule PO SCH ×2 (08:02→19:28)
[2022-04-19] MEDS: gabapentin 400mg capsule PO SCH ×2 (08:02→19:27)
[2022-04-19] MEDS: pantoprazole 40mg Tablet.DR PO SCH ×2 (08:02→19:28)
[2022-04-19] MEDS: prednisoLONE acetate 1% ophth susp 5ml EACHEYE SCH ×3 (08:03→21:53)
[2022-04-19] MEDS: dexamethasone 4mg/ml inj IV SCH ×2 (08:03→19:27)
[2022-04-19 08:40] LABS: ANISOCYTOSIS 3+; PLATELET ESTIMATE NORMAL
[2022-04-19 08:41] LABS: ACANTHOCYTES 1+; ELLIPTOCYTES 1+; SCHISTOCYTES FEW
[2022-04-19 12:00] VITALS: BP 127/66
[2022-04-19] MEDS: polyethylene glycol 3350 17gm powd pack PO SCH (14:14)
[2022-04-19 16:22] VITALS: BP 166/84
--- NOTE | 2022-04-19 16:32 | NUR ---
PAGER ID: [phone] MESSAGE: [phone] Stephanie Nguyễn: Patients asencio is causing a lot of burning and pressure. Would you like me to replace or remove? thanks royal [phone]
[2022-04-19] MEDS: rivaroxaban 20mg tablet PO SCH (16:59)
--- NOTE | 2022-04-19 18:10 | NUR ---
Problems reprioritized. Patient report given, questions answered & plan of care reviewed with LIZBETH Washington.
[2022-04-19 20:00] VITALS: BP 161/85
[2022-04-19] MEDS: traZODone 50mg tablet PO SCH (21:53)
[2022-04-20 02:00] VITALS: BP 155/81
[2022-04-20] MEDS: diltiazem 30mg tablet PO SCH ×4 (02:22→19:55)
[2022-04-20] MEDS: HYDROcodone/acetaminophen 10/325mg tab PO SCH ×4 (02:22→19:56)
[2022-04-20] MEDS: ALBUTEROL INHALER 1 PUFF/90 MCG INHALation IH SCH ×4 (03:00→20:45)
--- NOTE | 2022-04-20 06:37 | NUR ---
Problems reprioritized. Patient report given, questions answered & plan of care reviewed with Tim NIEVES. Addendum: 04/20/22 at 0637 by Padmini Saul RN Amended: Links added.
--- NOTE | 2022-04-20 07:08 | NUR ---
Patient in room PCU 3019. I have received report from Padmini NIEVES and had the opportunity to ask questions and assume patient care.
[2022-04-20] MEDS: gabapentin 400mg capsule PO SCH ×2 (08:00→19:55)
[2022-04-20] MEDS: ezetimibe 10mg tablet PO SCH (08:00)
[2022-04-20] MEDS: ferrous sulfate 325mg tablet PO SCH ×2 (08:00→19:55)
[2022-04-20] MEDS: atorvastatin 20mg tablet PO SCH (08:00)
[2022-04-20] MEDS: K and/or MAG REPLACEMENT MC SCH ×2 (08:00→19:56)
[2022-04-20] MEDS: polyethylene glycol 3350 17gm powd pack PO SCH (08:00)
[2022-04-20] MEDS: mirabegron 25mg ER tablet PO SCH (08:00)
[2022-04-20] MEDS: sotalol 80mg tablet PO SCH ×2 (08:00→19:55)
[2022-04-20] MEDS: dexamethasone 4mg/ml inj IV SCH ×2 (08:00→19:54)
[2022-04-20] MEDS: pantoprazole 40mg Tablet.DR PO SCH ×2 (08:00→19:55)
[2022-04-20] MEDS: docusate sod 100mg capsule PO SCH ×2 (08:00→19:55)
[2022-04-20] MEDS: FLUoxetine 20mg capsule PO SCH (08:00)
[2022-04-20] MEDS: celeCOXIB 100mg capsule PO SCH (08:00)
[2022-04-20] MEDS: cetirizine 10mg tablet PO SCH (08:00)
[2022-04-20] MEDS: loperamide 2mg capsule PO SCH (08:00)
[2022-04-20] MEDS: prednisoLONE acetate 1% ophth susp 5ml EACHEYE SCH ×3 (08:00→21:00)
[2022-04-20 08:05] LABS: BASOPHILS % (AUTO) 0.1 % (0-1); EOSINOPHILS % (AUTO) 0 % (0-6); HEMATOCRIT 38.8 % (35.0-45.0); HEMOGLOBIN 12.1 g/dl (12.0-16.0); LYMPHOCYTES # (AUTO) 0.6 X10'3 (1.1-4.8); LYMPHOCYTES % (AUTO) 5.7 % (21-51); MEAN CORPUSCULAR HEMOGLOBIN 25.4 PG (27.0-31.0); MEAN CORPUSCULAR HGB CONC 31.2 g/dL (33.0-36.5); MEAN CORPUSCULAR VOLUME 81.2 FL (78-98); MEAN PLATELET VOLUME 8.2 FL (7.4-10.4); MONOCYTES # (AUTO) 0.7 X10'3 (0-0.9); MONOCYTES % (AUTO) 7.3 % (2-12); NEUTROPHILS # (AUTO) 8.8 X10'3 (1.8-7.7); NEUTROPHILS % (AUTO) 86.9 % (42-75); PLATELET COUNT 248 X10'3 (140-440); RED BLOOD COUNT 4.78 X10'6 (4.20-5.60); RED CELL DISTRIBUTION WIDTH 20.8 % (11.5-14.5); WHITE BLOOD COUNT 10.1 X10'3 (4.5-11.0)
[2022-04-20 08:07] LABS: D-DIMER 0.68 MG/L FEU (0-0.50)
[2022-04-20 08:28] LABS: ALANINE AMINOTRANSFERASE 37 U/L (12-78); ALBUMIN 2.4 G/DL (3.4-5.0); ALBUMIN/GLOBULIN RATIO 0.8 (1.1-1.5); ALKALINE PHOSPHATASE 64 IU/L (46-116); ANION GAP 6 (8-16); ASPARTATE AMINO TRANSFERASE 30 U/L (10-37); BILIRUBIN,TOTAL 0.6 MG/DL (0.1-1.0); BLOOD UREA NITROGEN 24 MG/DL (7-18); BUN/CREATININE RATIO 30.8 (6.6-38.0); C-REACTIVE PROTEIN < 0.05 MG/DL (0.0-0.5); CALCIUM 8.3 MG/DL (8.5-10.1); CHLORIDE 106 MMOL/L (99-107); CREATININE 0.78 MG/DL (0.40-0.90); GLUCOSE 149 MG/DL (70-104); LACTATE DEHYDROGENASE 255 U/L (81-234); MAGNESIUM 2.2 MG/DL (1.5-2.4); PHOSPHORUS 3.3 MG/DL (2.3-4.5); POTASSIUM 4.7 MMOL/L (3.5-5.1); SODIUM 143 MMOL/L (135-145); TOTAL CARBON DIOXIDE 30.9 MMOL/L (24-32); TOTAL PROTEIN 5.5 G/DL (6.4-8.2); eGFR 72 ML/MIN
[2022-04-20 08:43] LABS: ANISOCYTOSIS 3+; PLATELET ESTIMATE NORMAL; POIKILOCYTOSIS FEW
[2022-04-20 09:00] VITALS: BP 149/68
[2022-04-20 12:14] VITALS: BP 114/70
[2022-04-20 16:38] VITALS: BP 123/74
[2022-04-20] MEDS: rivaroxaban 20mg tablet PO SCH (18:46)
[2022-04-20 20:00] VITALS: BP 141/75
[2022-04-20 22:00] VITALS: BP 150/76
[2022-04-20] MEDS: traZODone 50mg tablet PO SCH (22:18)
[2022-04-21 02:00] VITALS: BP 170/83
[2022-04-21] MEDS: diltiazem 30mg tablet PO SCH ×2 (02:19→08:36)
[2022-04-21] MEDS: HYDROcodone/acetaminophen 10/325mg tab PO SCH ×2 (02:19→08:37)
[2022-04-21] MEDS: ALBUTEROL INHALER 1 PUFF/90 MCG INHALation IH SCH ×2 (03:00→09:55)
--- NOTE | 2022-04-21 06:19 | NUR ---
Problems reprioritized. Patient report given, questions answered & plan of care reviewed with Tim NIEVES. Addendum: 04/21/22 at 0619 by Padmini Saul RN Amended: Links added.
[2022-04-21 06:30] LABS: D-DIMER 0.62 MG/L FEU (0-0.50)
--- NOTE | 2022-04-21 06:35 | NUR ---
Patient in room PCU 3019. I have received report from Padmini NIEVES and had the opportunity to ask questions and assume patient care.
[2022-04-21 06:46] LABS: BASOPHILS % (AUTO) 0.2 % (0-1); EOSINOPHILS % (AUTO) 0 % (0-6); HEMATOCRIT 39.1 % (35.0-45.0); HEMOGLOBIN 12.2 g/dl (12.0-16.0); LYMPHOCYTES # (AUTO) 0.6 X10'3 (1.1-4.8); LYMPHOCYTES % (AUTO) 5.6 % (21-51); MEAN CORPUSCULAR HEMOGLOBIN 25.2 PG (27.0-31.0); MEAN CORPUSCULAR HGB CONC 31.1 g/dL (33.0-36.5); MEAN CORPUSCULAR VOLUME 81.1 FL (78-98); MEAN PLATELET VOLUME 8.3 FL (7.4-10.4); MONOCYTES # (AUTO) 0.5 X10'3 (0-0.9); MONOCYTES % (AUTO) 4.9 % (2-12); NEUTROPHILS # (AUTO) 9.9 X10'3 (1.8-7.7); NEUTROPHILS % (AUTO) 89.3 % (42-75); PLATELET COUNT 276 X10'3 (140-440); RED BLOOD COUNT 4.82 X10'6 (4.20-5.60); RED CELL DISTRIBUTION WIDTH 21.3 % (11.5-14.5); WHITE BLOOD COUNT 11.1 X10'3 (4.5-11.0)
[2022-04-21 07:11] LABS: ALANINE AMINOTRANSFERASE 57 U/L (12-78); ALBUMIN 2.4 G/DL (3.4-5.0); ALBUMIN/GLOBULIN RATIO 0.8 (1.1-1.5); ALKALINE PHOSPHATASE 67 IU/L (46-116); ANION GAP 6 (8-16); ASPARTATE AMINO TRANSFERASE 33 U/L (10-37); BILIRUBIN,TOTAL 0.6 MG/DL (0.1-1.0); BLOOD UREA NITROGEN 25 MG/DL (7-18); BUN/CREATININE RATIO 32.5 (6.6-38.0); CALCIUM 8.3 MG/DL (8.5-10.1); CHLORIDE 104 MMOL/L (99-107); CREATININE 0.77 MG/DL (0.40-0.90); GLUCOSE 149 MG/DL (70-104); LACTATE DEHYDROGENASE 270 U/L (81-234); MAGNESIUM 2.1 MG/DL (1.5-2.4); PHOSPHORUS 3.7 MG/DL (2.3-4.5); POTASSIUM 4.7 MMOL/L (3.5-5.1); SODIUM 139 MMOL/L (135-145); TOTAL CARBON DIOXIDE 29.4 MMOL/L (24-32); TOTAL PROTEIN 5.4 G/DL (6.4-8.2); eGFR 73 ML/MIN
[2022-04-21 07:14] LABS: C-REACTIVE PROTEIN < 0.05 MG/DL (0.0-0.5)
[2022-04-21 07:31] VITALS: BP 160/82
[2022-04-21] MEDS: K and/or MAG REPLACEMENT MC SCH (08:00)
[2022-04-21] MEDS: loperamide 2mg capsule PO SCH (08:00)
[2022-04-21] MEDS: mirabegron 25mg ER tablet PO SCH (08:33)
[2022-04-21] MEDS: celeCOXIB 100mg capsule PO SCH (08:34)
[2022-04-21] MEDS: FLUoxetine 20mg capsule PO SCH (08:34)
[2022-04-21] MEDS: ferrous sulfate 325mg tablet PO SCH (08:34)
[2022-04-21] MEDS: pantoprazole 40mg Tablet.DR PO SCH (08:34)
[2022-04-21] MEDS: docusate sod 100mg capsule PO SCH (08:34)
[2022-04-21] MEDS: sotalol 80mg tablet PO SCH (08:35)
[2022-04-21] MEDS: cetirizine 10mg tablet PO SCH (08:35)
[2022-04-21] MEDS: ezetimibe 10mg tablet PO SCH (08:35)
[2022-04-21] MEDS: gabapentin 400mg capsule PO SCH (08:35)
[2022-04-21] MEDS: polyethylene glycol 3350 17gm powd pack PO SCH (08:37)
[2022-04-21] MEDS: atorvastatin 20mg tablet PO SCH (08:37)
[2022-04-21] MEDS: dexamethasone 4mg/ml inj IV SCH (08:38)
[2022-04-21] MEDS: prednisoLONE acetate 1% ophth susp 5ml EACHEYE SCH (08:43)
--- NOTE | 2022-04-21 11:28 | NUR ---
patient report called to accepting facility at this time. all questions answered at this time. Patient picked up for transport.
== END 2022-04-21 11:37 | DRG 871 ==
LOC: ER 16:05 → ED HOLD 20:18 → EDBEDREQ 04-13 19:59 → PCU 3S 04-13 21:28
PROVIDERS: ADMIT Internal Medicine; ATTEND Internal Medicine
PROC: XW033E5 Introduction of Remdesivir Anti-infective into Peripheral Vein, Percutaneous Approach, New Technology Group 5 (ICD-10-PCS; principal; 2022-04-11)
DX: A41.9 Sepsis, unspecified organism (principal); J12.82 Pneumonia due to coronavirus disease 2019; U07.1 COVID-19; J96.21 Acute and chronic respiratory failure with hypoxia; I48.20 Chronic atrial fibrillation, unspecified; F32.A Depression, unspecified; I10 Essential (primary) hypertension; G47.30 Sleep apnea, unspecified; E78.5 Hyperlipidemia, unspecified; D64.9 Anemia, unspecified; K57.90 Diverticulosis of intestine, part unspecified, without perforation or abscess without bleeding; E87.6 Hypokalemia; Z96.653 Presence of artificial knee joint, bilateral; I25.10 Atherosclerotic heart disease of native coronary artery without angina pectoris; I48.91 Unspecified atrial fibrillation; M19.90 Unspecified osteoarthritis, unspecified site; J43.9 Emphysema, unspecified; Z79.01 Long term (current) use of anticoagulants; Z87.891 Personal history of nicotine dependence; I25.2 Old myocardial infarction; Z93.3 Colostomy status; Z95.1 Presence of aortocoronary bypass graft; Z88.5 Allergy status to narcotic agent; Z98.61 Coronary angioplasty status; Z79.899 Other long term (current) drug therapy
CPT/HCPCS: 36415; 36600; 71045; 80053; 81001; 82803; 83615; 83735; 83880; 84100; 84132; 84145; 84484; 85007; 85008; 85018; 85025; 85379; 86140; 87077; 87081; 87088; 87186; 87635; 92508; 92616; 93005; 94640; 94760; 96365; 96375; 96376; 97110; 97116; 97162; 97530; 99285; A4314; A4338; A4565; A4649; A6212; A6223; C9113; C9803; G0378; J0360; J0780; J1100; J1940; J2405; J3480; J3490; J7030; J7040